=== PATIENT | female | born 1985 ===

== ENCOUNTER 2020-07-14 09:11 | Outpatient (REF) | payer OTHER, SELFPAY ==
[2020-07-14 09:49] LABS: MANUAL DIFF FLAG NO
[2020-07-14 09:59] LABS: Glucose Urine UA NEG (NEG); Leukocyte Esterase Urine NEG (NEG); Nitrite Urine NEG (NEG); PH 5.5 (5.0-8.0); Specific Gravity - Urine 1.025 (1.005-1.025); Urine Blood TRACE (NEG); Urine Ketones NEG (NEG); Urine Protein NEG (NEG-TRACE)
[2020-07-14 10:01] LABS: Basophils Percent Auto 0.3 % (0-2); Eosinophils Absolute Auto 0.1 X10*3/uL (0.0-0.4); Eosinophils Percent Auto 1.2 % (0-4); Hematocrit 35.4 % (37-47); Hemoglobin 11.9 g/dl (12.0-16.0); Imm Gran Abs Auto 0.02 X10*3/uL (0.00-0.03); Imm Gran Pct Auto 0.3 % (0.0-0.4); Lymphocytes Absolute Auto 1.7 X10*3/uL (1.2-4.9); Lymphocytes Percent Auto 28.9 % (20-40); Mean Corpuscular HGB Conc 33.6 g/dl (31.0-35.0); Mean Corpuscular Hemoglobin 28.5 pg (27.0-33.0); Mean Corpuscular Volume 84.7 fL (80-98); Mean Platelet Volume 11.1 fL (9.4-12.3); Monocytes Absolute Auto 0.4 X10*3/uL (0.1-1.2); Monocytes Percent Auto 6.8 % (2-11); Neutrophils Absolute Auto 3.7 X10*3/uL (2.0-8.3); Neutrophils Percent Auto 62.5 % (45-73); Platelet Count 227 X10*3/uL (160-400); Red Blood Count 4.18 X10*6/uL (4.20-5.50)
[2020-07-14 10:08] LABS: Appearance Urine CLEAR; Color Urine YELLOW
[2020-07-14 10:21] LABS: RBC Urine 0-2 /HPF (0); Squamous Epithelial Cell Urine 2+ /LPF; WBC Urine 0-2 /HPF (0-4)
[2020-07-14 10:32] LABS: Alanine Aminotransferase 18 U/L (0-31); Albumin Level 4.1 g/dL (3.5-5.0); Alkaline Phosphatase 74 U/L (39-117); Anion Gap 11 (12-20); Aspartate Amino Transferase 15 U/L (5-31); Bilirubin Total 0.3 mg/dL (0.0-1.0); Blood Urea Nitrogen 12 mg/dL (9-16); Calcium 8.5 mg/dL (8.4-10.2); Carbon Dioxide 25 mmol/L (22-29); Chloride 108 mmol/L (96-108); Cholesterol 164 mg/dL; Estimated Glomerular Filt Rate > 60; Glucose Fasting 102 mg/dL (60-99); HDL Cholesterol 34 mg/dL; LDL Cholesterol Calculated 112 mg/dl; Potassium 4.1 mmol/L (3.3-5.1); Sodium 140 mmol/L (135-145); Total Protein 7.1 g/dL (6.5-8.0); Triglycerides 92 mg/dL
[2020-07-14 10:39] LABS: TSH reflex Free T4 0.71 uIU/mL (0.32-4.0)
[2020-07-14 10:43] LABS: Erythrocyte Sedimentation Rate 21 MM/HR (0-20)
== END 2020-07-14 09:12 | disposition home or self-care (01) ==
LOC: HO.LAB 09:11
PROVIDERS: PCP Internal Medicine; Visit Provider Internal Medicine
DX: Z00.00 Encounter for general adult medical examination without abnormal findings (principal); G44.219 Episodic tension-type headache, not intractable; E66.9 Obesity, unspecified
CPT/HCPCS: 36415; 80053; 80061; 81001; 81003; 84443; 85025; 85652

== ENCOUNTER 2021-06-22 08:50 | Outpatient (REF) | payer OTHER, SELFPAY ==
[2021-06-22 09:17] LABS: MANUAL DIFF FLAG NO
[2021-06-22 09:29] LABS: Basophils Percent Auto 0.3 % (0-2); Eosinophils Absolute Auto 0.1 X10*3/uL (0.0-0.4); Eosinophils Percent Auto 1.2 % (0-4); Hematocrit 36.9 % (37.0-47.0); Hemoglobin 12.2 g/dl (12.0-16.0); Imm Gran Abs Auto 0.02 X10*3/uL (0.00-0.03); Imm Gran Pct Auto 0.3 % (0.0-0.4); Lymphocytes Absolute Auto 1.8 X10*3/uL (1.2-4.9); Lymphocytes Percent Auto 27.5 % (20-40); Mean Corpuscular HGB Conc 33.1 g/dl (31.0-35.0); Mean Corpuscular Hemoglobin 28.2 pg (27.0-33.0); Mean Corpuscular Volume 85.2 fL (80.0-98.0); Mean Platelet Volume 10.4 fL (9.4-12.3); Monocytes Absolute Auto 0.4 X10*3/uL (0.1-1.2); Monocytes Percent Auto 6.5 % (2-11); Neutrophils Absolute Auto 4.3 x10*3/uL (2.0-8.3); Neutrophils Percent Auto 64.2 % (45-73); Platelet Count 250 X10*3/uL (160-400); Red Blood Count 4.33 X10*6/uL (4.20-5.50); Red Cell Distribution Width 12.7 % (11.0-16.0); White Blood Count 6.7 X10*3/uL (4.8-10.8)
[2021-06-22 09:49] LABS: Appearance Urine CLEAR; Color Urine YELLOW; Glucose Urine UA NEG (NEG); Leukocyte Esterase Urine NEG (NEG); Nitrite Urine NEG (NEG); PH 6.5 (5.0-8.0); Specific Gravity - Urine 1.025 (1.005-1.025); UACC Culture Trigger NO; Urine Blood TRACE (NEG); Urine Ketones 5 MG/DL (NEG); Urine Protein TRACE MG/DL (NEG-TRACE)
[2021-06-22 09:54] LABS: Alanine Aminotransferase 15 U/L (0-31); Albumin Level 4.2 g/dL (3.5-5.0); Alkaline Phosphatase 76 U/L (39-117); Anion Gap 10 (12-20); Aspartate Amino Transferase 13 U/L (5-31); Bilirubin Total 0.4 mg/dL (0.0-1.0); Blood Urea Nitrogen 9 mg/dL (9-16); Calcium 9.5 mg/dL (8.4-10.2); Carbon Dioxide 28 mmol/L (22-29); Chloride 107 mmol/L (96-108); Cholesterol 154 mg/dL; Estimated Glomerular Filt Rate > 60; Glucose Fasting 107 mg/dL (60-99); HDL Cholesterol 33 mg/dL; LDL Cholesterol Calculated 103 mg/dl; Potassium 4.3 mmol/L (3.3-5.1); Sodium 141 mmol/L (135-145); Total Protein 7.4 g/dL (6.5-8.0); Triglycerides 90 mg/dL
[2021-06-22 10:00] LABS: Bacteria Urine TRACE /LPF; Mucus Urine 4+ /LPF; Squamous Epithelial Cell Urine 4+ /LPF; WBC Urine 0-2 /HPF (0-4)
[2021-06-22 10:10] LABS: Erythrocyte Sedimentation Rate 23 MM/HR (0-20)
[2021-06-22 10:17] LABS: TSH reflex Free T4 0.76 uIU/mL (0.32-4.0); Vitamin D 25-OH Total 21.7 ng/mL (>30)
== END 2021-06-22 08:51 | disposition home or self-care (01) ==
LOC: HO.LAB 08:50
PROVIDERS: PCP Internal Medicine; Visit Provider Internal Medicine
DX: Z00.00 Encounter for general adult medical examination without abnormal findings (principal); E04.9 Nontoxic goiter, unspecified; E55.9 Vitamin D deficiency, unspecified; G43.909 Migraine, unspecified, not intractable, without status migrainosus
CPT/HCPCS: 36415; 80053; 80061; 81001; 82306; 84443; 85025; 85652

== ENCOUNTER 2021-07-05 10:40 | Outpatient (REF) | payer OTHER, SELFPAY ==
--- NOTE | ~2021-07-05 | US_ITS ---
EXAMINATION: US THYROID CLINICAL INFORMATION: Nontoxic goiter, unspecified. COMPARISON: Ultrasound abdomen complete 09/16/2016. CT abdomen and pelvis 01/22/2013. TECHNIQUE: Linear transducer sexton-scale and color Doppler examination with attention to the region of the thyroid. FINDINGS: SIZE: Measurements of the thyroid lobes and nodules are given in sagittal, anteroposterior and transverse dimensions respectively. Right Thyroid Lobe: 4.7 x 1.5 x 1.7 cm, volume 6.3 mL. Parenchyma: The gland echotexture is homogeneous. Thyroid vascularity is normal. Left Thyroid Lobe: 4.4 x 1.1 x 1.7 cm, volume 4.3 mL. Parenchyma: The gland echotexture is homogeneous. Thyroid vascularity is normal. Isthmus: 0.3 cm in maximum AP dimension. No focal thyroid nodule is seen. NODES: No lymphadenopathy is seen in the tissue surrounding the thyroid gland. US/US thyroid IMPRESSION: Unremarkable thyroid ultrasound. No focal nodule seen. ACR TI-RADS RECOMMENDATION REFERENCE: Ultrasound-guided fine-needle aspiration, followup ultrasound, no further follow up. * TR1 (0 point) and TR 2 (2 points): No FNA or follow up * TR3 (3 points): FNA if more than or equal to 2.5 cm in maximum dimension, followup ultrasound in 1, 3 and 5 years if 1.5 to 2.4 cm in maximum dimension. * TR4 (4-6 points): FNA if more than or equal to 1.5 cm in maximum dimension, followup ultrasound in 1, 2, 3 and 5 years if 1 to 1.4 cm in maximum dimension. * TR5 (more than or equal to 7 points): FNA if more than or equal to 1 cm in maximum dimension, followup ultrasound every year for 5 years if 0.5 to 0.9 cm in maximum dimension. * TR3, TR4 or TR5 nodules that are below the size threshold for follow up receive no follow up.
== END 2021-07-05 10:41 | disposition home or self-care (01) ==
LOC: HO.HMGCX 10:40
PROVIDERS: PCP Internal Medicine; Visit Provider Internal Medicine
DX: E04.9 Nontoxic goiter, unspecified (principal)
CPT/HCPCS: 76536

== ENCOUNTER 2021-12-07 15:35 | Outpatient (REF) | payer OTHER, SELFPAY ==
[2021-12-07 18:10] LABS: Appearance Urine CLEAR; Color Urine YELLOW; Glucose Urine UA NEG (NEG); Leukocyte Esterase Urine NEG (NEG); Nitrite Urine NEG (NEG); Specific Gravity - Urine 1.015 (1.005-1.025); UACC Culture Trigger NO; Urine Blood 1+ (NEG); Urine Ketones NEG (NEG); Urine Protein NEG (NEG-TRACE)
[2021-12-07 18:18] LABS: WBC Urine 0-2 /HPF (0-4)
[2021-12-07 18:19] LABS: Squamous Epithelial Cell Urine 1+ /LPF
[2021-12-08 08:09] LABS: HBc Num1 0.09 S/CO (0.00-0.79); HIV AB/AG Nonreactive (Nonreactive); HIV Num 1 0.05 S/CO (0.00-0.99); Hepatitis B Core Antibody Nonreactive (Nonreactive); ~HepC Num1 0.07 S/CO (0.00-0.79); ~Hepatitis C Antibody Nonreactive (Nonreactive)
[2021-12-08 08:34] LABS: CT PCR NOT DETECTED (Not Detect.); NG PCR NOT DETECTED (Not Detect.)
[2021-12-08 09:26] LABS: Syphilis Screen Nonreactive (Nonreactive)
[2021-12-13 14:37] LABS: HPV mRNA E6/E7 rflx Not Detected (Not Detected)
== END 2021-12-07 15:36 | disposition home or self-care (01) ==
LOC: HO.LAB 15:35
PROVIDERS: PCP Internal Medicine; Visit Provider Advanced Practice Midwife
DX: Z01.419 Encounter for gynecological examination (general) (routine) without abnormal findings (principal); Z20.2 Contact with and (suspected) exposure to infections with a predominantly sexual mode of transmission
CPT/HCPCS: 36415; 81001; 86704; 86780; 86803; 87389; 87491; 87591; 87624; 88142

== ENCOUNTER 2022-06-14 18:23 | Outpatient (REF) | payer OTHER, SELFPAY ==
[2022-06-15 12:20] LABS: BV Int Neg Control Negative (Negative); BV Int Pos Control Positive (Positive)
== END 2022-06-14 18:24 | disposition home or self-care (01) ==
LOC: HO.LNP 18:23
PROVIDERS: Visit Provider Physician Assistant Medical
DX: N76.0 Acute vaginitis (principal)
CPT/HCPCS: 87480; 87510; 87660

== ENCOUNTER 2022-08-07 09:52 | Outpatient (REF) | payer OTHER, SELFPAY ==
--- NOTE | ~2022-08-07 | XR_ITS ---
EXAMINATION: XR CHEST CLINICAL INFORMATION: R06.00 - Dyspnea, unspecified COMPARISON: Chest radiographs 05/05/2012 TECHNIQUE: 2 views of the chest were obtained. FINDINGS: The lungs are clear and there is no airspace consolidation or groundglass opacity or effusion. Punctate nodular density possibly vascular marking right lateral base is stable from 2012 consistent with benign finding. The costophrenic sulci are clear. The heart is normal in size. The hilar and mediastinal contours and bony structures are unremarkable. XR/XR chest 2V IMPRESSION: Lungs clear. No acute intrathoracic disease.
[2022-08-07 16:47] LABS: CT PCR NOT DETECTED (Not Detect.); NG PCR NOT DETECTED (Not Detect.)
[2022-08-08 12:18] LABS: BV Int Neg Control Negative (Negative); BV Int Pos Control Positive (Positive)
== END 2022-08-07 09:53 | disposition home or self-care (01) ==
LOC: HO.LAB 09:52
PROVIDERS: Absent Provider Internal Medicine; PCP Internal Medicine; Visit Provider Advanced Practice Midwife
DX: R06.00 Dyspnea, unspecified (principal); B96.89 Other specified bacterial agents as the cause of diseases classified elsewhere; N76.0 Acute vaginitis; Z20.2 Contact with and (suspected) exposure to infections with a predominantly sexual mode of transmission; Z86.16 Personal history of COVID-19
CPT/HCPCS: 0353U; 71046; 87480; 87510; 87660

== ENCOUNTER 2022-08-07 10:15 | Outpatient (REF) | payer OTHER, SELFPAY | END 2022-08-07 10:16 | disposition home or self-care (01) | LOC: HO.LNP 10:15 | PROVIDERS: Visit Provider Advanced Practice Midwife | DX: Z13.89 Encounter for screening for other disorder (principal) ==

== ENCOUNTER 2022-09-13 13:40 | Outpatient (REF) | payer OTHER, SELFPAY ==
--- NOTE | ~2022-09-13 | MM_ITS ---
EXAMINATION: MM DIAGNOSTIC DIGITAL BREAST TOMOSYNTHESIS, BILATERAL US DIAGNOSTIC ULTRASOUND BREAST, BILATERAL CLINICAL INFORMATION: 37-year-old with chronic bilateral fullness axilla noted by patient over 1 year. No erythema. Prior ultrasound guided right biopsy axilla 07/28/2015 (unremarkable breast tissue; no clip placed). The lifetime risk of breast cancer based on the Tyrer-Cuzick Model is 12%. COMPARISON: Ultrasound-guided right axillary biopsy 07/28/2015, targeted right breast/axillary ultrasound 07/19/2015, 10/26/2014. TECHNIQUE: Digital breast tomosynthesis is performed in both the craniocaudal and mediolateral oblique views along with computer-aided detection (CAD). Synthesized 2D images are generated from the tomosynthesis. Additional bilateral spot MLO views of the axilla are obtained. Ultrasound bilateral breast/axilla is performed using grayscale imaging and color Doppler without and with harmonics. Patient is able to point to the areas of concern at time of imaging. FINDINGS: The breasts are heterogeneously dense, which may obscure small masses (ACR BI-RADS breast composition Category c). The breasts show no significant mass or architectural abnormality or abnormal calcifications. The skin contours are smooth. No skin thickening or coarsening of the Alf's ligaments. No axillary adenopathy demonstrated. There are accentuated reticular markings bilateral axilla near areas of clinical palpable concern. Ultrasound ultrasound bilateral axilla demonstrates no cystic or solid mass or architectural abnormality. No lymphadenopathy. No skin thickening or edema tracking in soft tissue planes. Results are discussed with the patient at time of visit. The previous right axillary biopsy 2015 (no clip placed) revealed benign breast tissue. The bilateral axillary reticular markings likely represent accessory breast tissue. Suggest follow-up bilateral mammography in 6 months. MM/MM tomosynthesis diagnostic BI IMPRESSION: -No mammographic or ultrasound evidence of malignancy. -Probable accessory breast tissue bilateral axilla. ASSESSMENT: BI-RADS 3: Probably Benign RECOMMENDATION: Diagnostic bilateral mammography in 6 months. This patient's information was entered into a reminder system with a target due date for their next mammogram.
== END 2022-09-13 13:41 | disposition home or self-care (01) ==
LOC: HO.MAMMO 13:40
PROVIDERS: PCP Internal Medicine; Visit Provider Internal Medicine
DX: N63.32 Unspecified lump in axillary tail of the left breast (principal); M79.89 Other specified soft tissue disorders
CPT/HCPCS: 76642; 77062; 77066

== ENCOUNTER 2022-12-28 15:40 | Outpatient (AMB) | payer OTHER, SELFPAY ==
[2022-12-28 15:41] VITALS: BP 102/60; PULSE 73; O2SAT 97
--- NOTE | 2022-12-28 15:41 | A.OFFPC_ITS ---
Vital Signs 12/28/22 15:41 Height 5 ft 3 in Weight 169 lb 4 oz BMI 30.0 BP 102/60 Blood Pressure Location Lt brachial Position Sitting Pulse 73 Pulse Source Pulse Oximeter Pulse Oximetry (%) 97 Oxygen Delivery Method Room Air Intake Visit Reasons: Annual Exam Application Dba Required: No Accompanied by: Self / Same As Patient Allergies seafood Allergy (Unknown, Verified 12/28/22 15:56) Unknown Medication List - Last Reconciled 12/28/22 by Jersey Cardoso MD albuterol sulfate 90 mcg/actuation (ProAir HFA) 2 puffs inhalation Q6H PRN 30 days ebxmragxjg-utxuejrvpsuvu-imje 50-325-40 mg 1 cap PO Q6-8H PRN 30 days cholecalciferol (vitamin D3) 25 mcg PO DAILY naproxen 500 mg PO BID PRN sumatriptan succinate 50 mg PO Q2H PRN Tobacco use date assessed: 12/28/22 Dental Screening Dental Screen Date: 12/28/22 Did you have a dental visit in the last 12 months?: Yes Did you have a dental problem in the last 6 months where you did not have access to dental care?: No Was dental information given to patient?: Patient has dentist HPI Annual Exam HPI Details Patient comes in today for her annual physical examination States that she feels okay and that her migraine headaches have been much better controlled lately She denies any dizziness Denies any chest pains, no SOB although she relates suddenly experiencing some chest tightness a couple of days ago that started when she was eating States that she did not choke on any foods or drinks at the time Recalls that the sensation of chest tightness went up into her left shoulder and down the length of her left arm and hand and that all of these symptoms lasted for about 30 minutes before they subsided and have not recurred since Relates (+) Hx of heart disease (mother) and she is concerned about her own risks and that the symptoms may be cardiac in etiology - would like to get some cardiac testing done JAZMIN No nausea/vomiting, no abdominal pain No change in bowel habits noted Denies any acute urinary symptoms She is scheduled for 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 1. Little interest or pleasure in doing things: not at all 2. Feeling down, depressed, or hopeless: not at all 3. Trouble falling or staying asleep, or sleeping too much: not at all 4. Feeling tired or having little energy: not at all 5. Poor appetite or overeating: not at all 6. Feeling bad about yourself - or that you are a failure or have let yourself or your family down: not at all 7. Trouble concentrating on things, such as reading the newspaper or watching television: not at all 8. Moving or speaking so slowly that other people could have noticed. Or the opposite - being so fidgety or restless that you have been moving around a lot more than usual: not at all 9. Thoughts that you would be better off or of hurting yourself in some way: not at all Total score: 0 Depression Screening Interpretation: Negative 31520 - PHQ-9 Billing: Yes Source: Developed by Drs. Viktor Ramirez, Lisa Zafar, Henok Doherty and colleagues, with an educational yolette from [employer]. Thrive Questionnaire Date Thrive assessed: 12/28/22 I am a: Patient What is your living situation today?: I have a steady place to live Within the past 12 months, did the food you bought not last and you didn't have the money to get more?: Never true Within the past 12 months, did you worry whether your food would run out before you got money to buy more?: Never true Do you have trouble paying for medicines?: No Do you have trouble getting transportation to medical appointments?: No Do you have trouble paying your heating and electricity bill?: No Do you have trouble taking care of your child, family member or friend?: No Do you have trouble with day-to-day activities such as bathing, preparing meals, shopping, managing finances, etc.?: No Are you currently unemployed and looking for a job?: No Are you interested in more education?: No Please select the resources that you would like help with: None Currently or been in a relationship where the following occur: no concerns reported AUDIT C Alcohol Use Questionnaire (AUDIT-C) 1. How often do you have a drink containing alcohol?: Never 3. How often do you have six or more drinks on one occasion?: Never Total Score: 0 Score Reviewed/Action Taken: Yes LISANDRO-7 AMB Questionnaire LISANDRO-7 Date LISANDRO - 7 assessed: 12/28/22 Feeling nervous, anxious, or on edge: 0 = Not at all Not being able to stop or control worryin = Not at all Worrying too much about different things: 0 = Not at all Trouble relaxin = Not at all Being so restless that it is hard to sit still: 0 = Not at all Becoming easily annoyed or irritable: 0 = Not at all Feeling afraid as if something awful might happen: 0 = Not at all Total LISANDRO-7 score (0-4 normal; 5-9 mild; 10-14 moderate; 15-21 severe): 0 Source: Developed by Drs. Viktor Ramirez, Lisa Zafar, Henok Doherty and colleagues, with an educational yolette from [employer]. LISANDRO-7 Assessment Billing LISANDRO-7 Assessment Tool: LISANDRO-7 Assessment 76142 Review of Systems Const Denies chills, Denies fatigue, Denies fever(s), Denies headache(s) and Denies malaise Eyes Denies blurry vision, Denies change in vision, Denies irritation and Denies itchy eyes ENT Denies dysphagia, Denies dizziness, Denies otalgia, Denies headache(s), Denies nasal congestion, Denies neck pain, Denies odynophagia, Denies sinus pain and Denies sore throat Card Denies chest pain ((+) chest tightness/discomfort radiating into left arm 2 days ago-see HPI), Denies rapid heart rate, Denies irregular heart rhythm, Denies palpitations and Denies dyspnea Resp Denies chest congestion, Denies cough, Denies dyspnea and Denies wheezing GI Denies abdominal pain, Denies constipation, Denies dysphagia, Denies heartburn, Denies diarrhea, Denies nausea, Denies odynophagia and Denies vomiting Denies hematuria, Denies urinary frequency, Denies dysuria, Denies urinary incontinence and Denies urinary urgency Musc Denies back pain, Denies arthralgias, Denies joint swelling, Denies muscle weakness and Denies neck pain Skin/Breast Denies breast pain, Denies breast mass, Denies change in pigmentation, Denies lesions, Denies rash and Denies unusual bruising Neuro Denies dizziness, Denies headache(s) and Denies paresthesias Psych Denies anxiety and Denies depression Endo Denies fatigue and Denies palpitations David/Lymph Denies easy bruising Aller/Immun Denies itchy eyes and Denies wheezing Physical exam (Primary Care) Vital Signs: Last Vital Signs Pulse 73 12/28/22 15:41 BP 102/60 12/28/22 15:41 Pulse Ox 97 12/28/22 15:41 Oxygen Delivery Method Room Air 12/28/22 15:41 BMI result Body Mass Index 30.0 Tobacco/Smoking Status: Tobacco use Status Tobacco use date assessed 12/28/22 12/28/22 15:46 Patient Tobacco Use Status Never used Tobacco 12/28/22 15:46 PHQ-9: PHQ-9 Score PHQ-9: Total score 0 12/28/22 15:46 Depression Screening Interpretation: Negative Thrive Assessment: Date of Thrive Assessment Date Thrive assessed 12/28/22 12/28/22 15:46 Currently or been in a relationship where the following occur: no concerns reported Const General: no acute distress, alert and awake Orientation/consciousness: patient oriented x3 HENMT Head: Yes normocephalic and Yes atraumatic Ears: external ears normal, TM's normal bilaterally and EAC's normal General nose exam: No nasal discharge present Face and sinus: Yes normal facial exam and Yes sinuses nontender Teeth and gingiva: dentition normal Throat: Yes posterior oropharynx normal and Yes tonsils normal (no TP congestion) Eyes Eyelids: Yes eyelids normal Conjunctivae: conjunctivae normal Pupils: Equal, round and reactive pupils present EOM: EOMs intact bilaterally Neck Neck: Yes no lymphadenopathy and Yes supple Thyroid: Thyroid normal Resp Auscultation: clear to auscultation bilaterally, no rales and no wheezes Cardio Rate: regular rate Rhythm: regular rhythm Heart sounds: no murmurs GI Palpation (GI): Soft to palpation, nontender and No hepatosplenomegaly present Auscultation: normal bowel sounds General: Yes no CVA tenderness Back/Spine/Pelvis Back: no CVA tenderness Thoracic/Lumbar Spine: thoracic and lumbar spine normal to inspection Skin Lesions: no lesions Rashes: no rashes Neuro General: patient oriented x3, moves all extremities, no focal motor deficits and CN's II-XI intact bilaterally Cranial nerves: Yes Equal, round and reactive pupils present Cognition (Neuro): normal cognition Gait exam (Neuro): Normal gait present Extrem General: Yes no clubbing, cyanosis or edema Assessment and Plan Assessment & Plan (1) Annual physical exam: Code(s): Z00.00 - Encounter for general adult medical examination without abnormal findings Plan: Check labs She is scheduled for her yearly pap smear / 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 and annual mammogram in March 2023 (2) Migraine: Code(s): G43.909 - Migraine, unspecified, not intractable, without status migrainosus Qualifiers: Migraine type: unspecified Status migrainosus presence: without status migrainosus Intractability: not intractable Qualified Code(s): G43.909 - Migraine, unspecified, not intractable, without status migrainosus Plan: Stable - patient states that she only has about 1 to 2 episodes of headaches a month and these have been mostly well-controlled Continue Fioricet 50-325-40 mg PRN and/or Sumatriptan 50 mg PRN She is instructed again to call if her migraine headaches progress or get worse (3) Chest discomfort: Code(s): R07.89 - Other chest pain Plan: Symptoms occurred a couple of days ago with no recurrence Relates (+) family Hx of heart disease and is concerned about her own risks Will send patient for some labs and EKG JAZMIN for further evaluation Per request, will also refer her for cardiac stress testing for further evaluation (4) Vitamin D deficiency: Code(s): E55.9 - Vitamin D deficiency, unspecified Plan: Continue Vitamin D3 1000 units QD Will recheck her Vitamin D level for follow up (5) Obesity (BMI 30-39.9): Code(s): E66.9 - Obesity, unspecified Plan: Reinforced diet/exercise as tolerated/lose weight Plan Follow up in 6 months Orders: Orders Comprehensive [place]. Panel Fast Today G43.109 - Migraine with aura, not intractable, without status migrainosus, Z00.00 - Encounter for general adult medical examination without abnormal findings Lipid Panel Today E78.00 - Pure hypercholesterolemia, unspecified, G43.109 - Migraine with aura, not intractable, without status migrainosus, Z00.00 - Encounter for general adult medical examination without abnormal findings TSH reflex Free T4 Today E78.00 - Pure hypercholesterolemia, unspecified, G43.109 - Migraine with aura, not intractable, without status migrainosus, Z00.00 - Encounter for general adult medical examination without abnormal findings Vitamin D 25-OH Total Today E55.9 - Vitamin D deficiency, unspecified, Z00.00 - Encounter for general adult medical examination without abnormal findings Complete Blood Count Auto Diff Today G43.109 - Migraine with aura, not intractable, without status migrainosus, Z00.00 - Encounter for general adult medical examination without abnormal findings UA CC w/rflx Micro + Cult Today G43.109 - Migraine with aura, not intractable, without status migrainosus, R30.0 - Dysuria, Z00.00 - Encounter for general adult medical examination without abnormal findings ECG 12 lead EKG Today R07.89 - Other chest pain CA cardiopulmonary stress test Today R07.89 - Other chest pain Troponin-I High Sensitivity Today R07.89 - Other chest pain Coding Level of Care Code Est Pt Prev Care 18-39y([id number]) Diagnoses Annual physical exam Z00.00 Migraine G43.909 Migraine type: unspecified Status migrainosus presence: without status migrainosus Intractability: not intractable Chest discomfort R07.89 Vitamin D deficiency E55.9 Obesity (BMI 30-39.9) E66.9 Additional Codes LISANDRO-7 Assessment Billing - LISANDRO-7 Assessment Tool: LISANDRO-7 Assessment [id number] ([id number])
== END 2022-12-28 16:22 | disposition home or self-care (01) ==
PROVIDERS: PCP Internal Medicine; Visit Provider Internal Medicine
DX: Z00.00 Encounter for general adult medical examination without abnormal findings (principal); G43.909 Migraine, unspecified, not intractable, without status migrainosus; E66.9 Obesity, unspecified; Z68.30 Body mass index [BMI] 30.0-30.9, adult; E55.9 Vitamin D deficiency, unspecified; R07.89 Other chest pain
CPT/HCPCS: 99395

== ENCOUNTER 2023-01-01 09:02 | Outpatient (REF) | payer OTHER, SELFPAY ==
--- NOTE | 2023-01-01 09:07 | ECG_ITS ---
Test Reason : r07.89 cp Blood Pressure : / mmHG Vent. Rate : 059 BPM Atrial Rate : 059 BPM P-R Int : 174 ms QRS Dur : 082 ms QT Int : 408 ms P-R-T Axes : 044 042 049 degrees QTc Int : 403 ms Sinus bradycardia with sinus arrhythmia Otherwise normal ECG No previous ECGs available Referred By: Jersey Cardoso Electronically Signed By:MERRITT ALBERT
[2023-01-01 09:19] LABS: MANUAL DIFF FLAG NO
[2023-01-01 10:19] LABS: Basophils Percent Auto 0.6 % (0-2); Eosinophils Absolute Auto 0.1 X10*3/uL (0.0-0.4); Eosinophils Percent Auto 1.7 % (0-4); Hemoglobin 12.6 g/dl (12.0-16.0); Imm Gran Abs Auto 0.02 X10*3/uL (0.00-0.03); Imm Gran Pct Auto 0.3 % (0.0-0.4); Lymphocytes Absolute Auto 1.9 X10*3/uL (1.2-4.9); Lymphocytes Percent Auto 26.3 % (20-40); Mean Corpuscular HGB Conc 33.2 g/dl (31.0-35.0); Mean Corpuscular Hemoglobin 27.8 pg (27.0-33.0); Mean Corpuscular Volume 83.9 fL (80.0-98.0); Mean Platelet Volume 11.1 fL (9.4-12.3); Monocytes Absolute Auto 0.4 X10*3/uL (0.1-1.2); Monocytes Percent Auto 5.9 % (2-11); Neutrophils Absolute Auto 4.7 x10*3/uL (2.0-8.3); Neutrophils Percent Auto 65.2 % (45-73); Platelet Count 249 X10*3/uL (160-400); Red Blood Count 4.53 X10*6/uL (4.20-5.50); Red Cell Distribution Width 12.8 % (11.0-16.0); White Blood Count 7.3 X10*3/uL (4.8-10.8)
[2023-01-01 10:27] LABS: Appearance Urine Hazy; Color Urine Yellow; Glucose Urine UA Negative (Negative); Leukocyte Esterase Urine Negative (Negative); Nitrite Urine Negative (Negative); Specific Gravity - Urine >= 1.030 (1.005-1.025); UMIC TRIGGER UACC YES; Urine Blood Small (1+) (Negative); Urine Ketones Negative (Negative); Urine Protein Trace mg/dL (Neg-Trace)
[2023-01-01 10:37] LABS: Bacteria Urine 1+ (None Seen); Calcium Oxalate Crystals Urine Present; Hyaline Casts Urine 0-2 /LPF (0-2); RBC Urine 0-2 /HPF (0-2); WBC Urine 0-5 /HPF (0-5)
[2023-01-01 11:05] LABS: Alanine Aminotransferase 13 U/L (0-31); Albumin Level 4.2 g/dL (3.5-5.0); Alkaline Phosphatase 87 U/L (39-117); Anion Gap 9 (12-20); Aspartate Amino Transferase 14 U/L (5-31); Bilirubin Total 0.3 mg/dL (0.0-1.0); Blood Urea Nitrogen 13 mg/dL (9-16); Calcium 9.5 mg/dL (8.4-10.2); Carbon Dioxide 27 mmol/L (22-29); Chloride 107 mmol/L (96-108); Cholesterol 156 mg/dL; Estimated Glomerular Filt Rate > 60; Glucose Fasting 101 mg/dL (60-99); HDL Cholesterol 34 mg/dL; LDL Cholesterol Calculated 103 mg/dl; Potassium 4.1 mmol/L (3.3-5.1); Sodium 139 mmol/L (135-145); Total Protein 7.8 g/dL (6.5-8.0); Triglycerides 97 mg/dL
[2023-01-01 11:26] LABS: TSH reflex Free T4 0.65 uIU/mL (0.32-4.0); Vitamin D 25-OH Total 32.2 ng/mL (>30)
== END 2023-01-01 09:03 | disposition home or self-care (01) ==
LOC: HO.LAB 09:02
PROVIDERS: PCP Internal Medicine; Visit Provider Internal Medicine
DX: Z00.00 Encounter for general adult medical examination without abnormal findings (principal); R07.89 Other chest pain; G43.109 Migraine with aura, not intractable, without status migrainosus; E55.9 Vitamin D deficiency, unspecified; E78.00 Pure hypercholesterolemia, unspecified
CPT/HCPCS: 36415; 80053; 80061; 81001; 82306; 84443; 84484; 85025; 93005

== ENCOUNTER → 2023-01-07 13:54 | Outpatient (REF) | payer OTHER, SELFPAY ==
--- NOTE | 2023-01-07 13:57 | CA_ITS ---
Acquisition Time: 2023-01-07 14:04:46 Total Exercise Time: 00:07:31 Test Indications: CHEST PAIN Medications: ALBUTEROL MAPROXEN SUMATRIPTAN Protocol: MANUEL Max HR: 162 BPM 88% of Pred: 183 BPM Max BP: 158/068 mmHG Max Work Load: 9.3 METS Exercise stress test exercise 7 min 31 sec of Manuel protocol achieving 88% MPHR, with mild SOB, no chest discomfort, without arrhythmias, with normotensive response to exercise, without EKG changes. Test reviewed with Dr. Salvador. Referred By: Jersey Cardoso Overread By: Tara Sam
== END ==
LOC: HO.CARD 13:54
PROVIDERS: PCP Internal Medicine; Visit Provider Internal Medicine
DX: R07.89 Other chest pain (principal)
CPT/HCPCS: 93017

== ENCOUNTER → 2023-01-07 13:57 | Outpatient (BNV) | payer OTHER, SELFPAY | PROVIDERS: PCP Internal Medicine; Visit Provider Nurse Practitioner | DX: R06.02 Shortness of breath (principal); R07.9 Chest pain, unspecified | CPT/HCPCS: 93016; 93018 ==

== ENCOUNTER 2023-03-27 09:57 | Outpatient (AMB) | payer OTHER, SELFPAY ==
--- NOTE | 2023-03-27 10:00 | A.OFFVIS_ITS ---
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 Doing well overall with some concerns. She tries to eat healthy and stays active with exercise. Regular monthly menses. She complains of feelings of hot flashes, which she says occur randomly. She is concerned this is pre-menopause. She denies vaginal itching and irritation. She says she has been using probiotics 2x weekly after her previous BV from 08/09. She has Boric acid product at home she can use. STI screening offered; she accepts. Denies family history of breast, ovarian or colon cancer. Last pap smear 12/08/21, was negative. Last mammogram 09/13/22, was abnormal, repeat mammogram scheduled for 04/17/23. She reports losing ~10lbs since her last appointment. [facility] Medical History Lump of axillary tail of left breast Vitamin D deficiency Migraine with aura Obesity (BMI 30-39.9) Surgical History Hx of tubal ligation History of section Family History Father No problems noted. 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 Sexual orientation: Straight/Heterosexual Gender identity: Female Cognitive needs: No Hearing needs: No Vision needs: No Female Reproductive History Menstrual Date of last menstrual period: 03/16/23 control method: permanent sterilization Permanent Sterilization: BTL Total pregnancies: 2 Full term: 2 Number of Living Children: 2 Date of last pap smear: 12/07/21 (neg pap and hpv) Review of Systems Const All systems reviewed & are unremarkable except as noted in HPI and below Reports as per HPI Eyes Reports no additional complaints ENT Reports no additional complaints Card Reports no additional complaints Resp Reports no additional complaints GI Reports as per HPI and Reports no additional complaints Reports as per HPI Musc Reports no additional complaints Skin/Breast Reports as per HPI Neuro Reports no additional complaints Psych Reports no additional complaints Endo Reports no additional complaints David/Lymph Reports no additional complaints Aller/Immun Reports no additional complaints Physical Exam Vital Signs: Last Vital Signs BP 114/70 03/27/23 10:02 BMI result Body Mass Index 29.2 Const General: cooperative, healthy appearing, no acute distress, well developed and alert Orientation/consciousness: patient oriented x3 HEENT Head: Yes normal to inspection Eyes General: appearance normal, both eyes and all related structures Neck Neck: Yes normal visual inspection Thyroid: Thyroid normal Chest Other: Area of thickness in the left breast, at ~12:00, above the nipple Chest palpation & inspection: normal inspection of the chest and other (no puckering, dimpling, peau de orange, retraction, discharge, masses) Breast/axilla inspection: normal inspection of the breasts Breast/axilla palpation: normal palpation of the breasts Resp Effort & Inspection: normal respiratory effort GI Inspection: Yes normal to inspection Palpation (GI): Soft to palpation Rectal Exam - Female: deferred General: Yes bladder normal to palpation External Female Exam: normal external appearance and normal appearance of the urethra Speculum Exam - Vagina: normal appearance of the vagina, normal palpation and normal vaginal discharge Speculum Exam - Cervix: normal appearance of the cervix and normal palpation Bimanual exam- vagina & uterus: normal bimanual exam, normal palpation, uterine size normal, bladder normal to palpation, normal palpation and non-tender Bimanual Exam- Adnexa, other: no masses Skin General skin exam: no rashes or lesions noted Rashes: no rashes Neuro General: patient oriented x3 Cognition (Neuro): normal cognition Extrem General: Yes normal to inspection Psych Attitude: cooperative Thought process: Normal thought process present Results Reviewed Results Reviewed: FINDINGS: The breasts are heterogeneously dense, which may obscure small masses (ACR BI-RADS breast composition Category c). The breasts show no significant mass or architectural abnormality or abnormal calcifications. The skin contours are smooth. No skin thickening or coarsening of the Alf's ligaments. No axillary adenopathy demonstrated. There are accentuated reticular markings bilateral axilla near areas of clinical palpable concern. Ultrasound ultrasound bilateral axilla demonstrates no cystic or solid mass or architectural abnormality. No lymphadenopathy. No skin thickening or edema tracking in soft tissue planes. Results are discussed with the patient at time of visit. The previous right axillary biopsy 2016 (no clip placed) revealed benign breast tissue. The bilateral axillary reticular markings likely represent accessory breast tissue. Suggest follow-up bilateral mammography in 6 months. US/US breast LT limited IMPRESSION: -No mammographic or ultrasound evidence of malignancy. -Probable accessory breast tissue bilateral axilla. ASSESSMENT: BI-RADS 3: Probably Benign RECOMMENDATION: Diagnostic bilateral mammography in 6 months. Assessment & Plan Assessment & Plan (1) Encounter for annual routine gynecological examination: Code(s): Z01.419 - Encounter for gynecological examination (general) (routine) without abnormal findings Plan: Discussed: Current recommendations for pap smears per ASCCP guidelines. Breast awareness and periodic self breast exams. Mammogram scheduled for 04/17/23. Maintaining a healthy lifestyle including a well balanced diet and routine exercise. Encouraged condom use for STD prevention. Cultures for STD testing and labs for BV screening ordered today. All of her questions and concerns were addressed to the best of my ability She will follow up to discuss test results when completed. She will return in one year for AG. (2) Hot flashes: Code(s): R23.2 - Flushing Plan: Counseled on hot flashes. Discussed work up including FSH and TSH. She completed a TSH recently and results were within normal limits. Still experiencing regular menses. Avoid spicy foods and alcohol. Wear light, layered clothing. Sleep with fan on. Can also try a cooling pillow or mattress. Stay well hydrated. (3) Left breast mass: Code(s): N63.20 - Unspecified lump in the left breast, unspecified quadrant Plan: Increased fullness in the left breast at ~12:00 above the nipple. Mammogram scheduled for 11/29/23. US ordered today, with focus on left breast. Orders: Orders CT NG by PCR Today N89.8 - Other specified noninflammatory disorders of vagina, Z20.2 - Contact with and (suspected) exposure to infections with a predominantly sexual mode of transmission US breast LT complete Today N63.20 - Unspecified lump in the left breast, unspecified quadrant Hepatitis C Antibody Today Z20.2 - Contact with and (suspected) exposure to infections with a predominantly sexual mode of transmission Hepatitis B Core Antibody Today Z20.2 - Contact with and (suspected) exposure to infections with a predominantly sexual mode of transmission Bacterial Vaginosis Panel Today N89.8 - Other specified noninflammatory disorders of vagina, Z20.2 - Contact with and (suspected) exposure to infections with a predominantly sexual mode of transmission HIV Ab/Ag Today Z20.2 - Contact with and (suspected) exposure to infections with a predominantly sexual mode of transmission Syphilis Screen Today Z20.2 - Contact with and (suspected) exposure to infections with a predominantly sexual mode of transmission Coding Level of Care Code Est Pt Prev Care 18-39y(36695) Diagnoses Encounter for annual routine gynecological examination Z01.419 Hot flashes R23.2 Left breast mass N63.20
[2023-03-27 10:02] VITALS: BP 114/70; BMI 29.2
== END 2023-03-27 10:58 | disposition home or self-care (01) ==
LOC: HO.HWS 09:57
PROVIDERS: PCP Internal Medicine; Visit Provider Advanced Practice Midwife
DX: Z01.419 Encounter for gynecological examination (general) (routine) without abnormal findings (principal); R23.2 Flushing; N63.20 Unspecified lump in the left breast, unspecified quadrant
CPT/HCPCS: 99395

== ENCOUNTER 2023-03-27 09:57 | Outpatient (REF) | payer OTHER, SELFPAY | END 2023-03-27 09:58 | disposition home or self-care (01) | LOC: HO.LNP 09:57 | PROVIDERS: PCP Internal Medicine; Visit Provider Advanced Practice Midwife | DX: Z13.89 Encounter for screening for other disorder (principal) ==

== ENCOUNTER 2023-03-27 10:23 | Outpatient (REF) | payer OTHER, SELFPAY ==
[2023-03-28 12:54] LABS: BV Int Neg Control Negative (Negative); BV Int Pos Control Positive (Positive)
== END 2023-03-27 10:24 | disposition home or self-care (01) ==
LOC: HO.LAB 10:23
PROVIDERS: Visit Provider Advanced Practice Midwife
DX: Z20.2 Contact with and (suspected) exposure to infections with a predominantly sexual mode of transmission (principal); N89.8 Other specified noninflammatory disorders of vagina
CPT/HCPCS: 87480; 87510; 87660

== ENCOUNTER 2023-03-27 10:37 | Outpatient (REF) | payer OTHER, SELFPAY ==
[2023-03-27 12:20] LABS: HBc Num1 0.06 S/CO (0.00-0.79); HIV AB/AG Nonreactive (Nonreactive); HIV Num 1 0.06 S/CO (0.00-0.99); Hepatitis B Core Antibody Nonreactive (Nonreactive); ~HepC Num1 0.06 S/CO (0.00-0.79); ~Hepatitis C Antibody Nonreactive (Nonreactive)
[2023-03-27 12:23] LABS: Syphilis Screen Nonreactive (Nonreactive)
[2023-03-27 14:05] LABS: CT PCR NOT DETECTED (Not Detect.); NG PCR NOT DETECTED (Not Detect.)
== END 2023-03-27 10:38 | disposition home or self-care (01) ==
LOC: HO.LAB 10:37
PROVIDERS: PCP Internal Medicine; Visit Provider Advanced Practice Midwife
DX: Z11.4 Encounter for screening for human immunodeficiency virus [HIV] (principal); Z20.2 Contact with and (suspected) exposure to infections with a predominantly sexual mode of transmission; N89.8 Other specified noninflammatory disorders of vagina
CPT/HCPCS: 0353U; 86704; 86780; 86803; 87389

== ENCOUNTER 2023-04-17 13:45 | Outpatient (REF) | payer OTHER, SELFPAY ==
--- NOTE | ~2023-04-17 | US_ITS ---
EXAMINATION: MM DIAGNOSTIC DIGITAL BREAST TOMOSYNTHESIS, BILATERAL US BREAST LIMITED, LEFT MAMMOGRAPHY: CLINICAL INFORMATION: Patient complaining of thickening feeling in the 12:00 region of the left breast. Also follow-up for reticular markings in both axillary regions. Patient due for bilateral screening. COMPARISON: 09/13/2022, mammography and bilateral ultrasonography. TECHNIQUE: Digital breast tomosynthesis is performed in both the craniocaudal and mediolateral oblique views along with computer-aided detection (CAD). Synthesized 2D images are generated from the tomosynthesis. FINDINGS: The breasts are extremely dense, which lowers the sensitivity of mammography (ACR BI-RADS breast composition Category d). There is a rounded mass in the left breast retroareolar region approximately 3-4 cm posterior to the nipple along the nipple line. This will be evaluated by ultrasound. Otherwise, there are no masses which can be distinguished from the extremely dense breast parenchyma. There are no suspicious grouped calcifications, or regions of architectural distortion in either breast. There appears to be a dense ridge of tissue in the superior left breast, likely accounting for the palpable abnormality. ULTRASOUND: CLINICAL INFORMATION: Patient complaining of thickening feeling in the 12:00 region of the left breast. COMPARISON: 08/24/2022. TECHNIQUE: Targeted sonographic evaluation was performed using a high frequency linear transducer. Attention was performed to the superior left breast in the region of palpable concern. Selected archived documentation. FINDINGS: LEFT BREAST: There is extremely dense fibroglandular tissue present throughout the left breast. There is a cyst with good through transmission at the 12:00 axis, 2 cm from the nipple, lying somewhat deep approximately 2.5 cm. More superficially, in the 1:00 axis, 1 cm from the nipple, there is an oval slightly hypoechoic mass measuring 0.4 x 0.5 x 0.7 cm. This appears to have subtle cystic areas. This is indeterminant and biopsy is recommended. A most likely relates to a benign entity such as a fibroadenoma or variant. US/US breast LT limited mamm only IMPRESSION: Suspicious oval 8 mm mass in the left breast 1:00 axis, 1 cm from the nipple, for which ultrasound-guided biopsy is recommended. There is a cyst at the 12:00 axis which is somewhat deep, with good through transmission measuring approximately 5 mm. Because of the depth, six-month interval follow-up ultrasound recommended to ensure stability. The patient has extremely dense breast tissue bilaterally. There is a dense ridge of tissue in the superior left breast, likely accounting for the palpable ridge felt. No additional suspicious findings in either breast. OVERALL ASSESSMENT: Mammography: BI-RADS 4 - Suspicious finding Ultrasound: BI-RADS 4 - Suspicious finding RECOMMENDATION: Biopsy recommended Results were provided to the patient at time of visit by the technologist. This patient's information was entered into a reminder system with a target due date for their next mammogram.
== END 2023-04-17 13:46 | disposition home or self-care (01) ==
LOC: HO.MAMMO 13:45
PROVIDERS: PCP Internal Medicine; Visit Provider Advanced Practice Midwife
DX: N63.25 Unspecified lump in the left breast, overlapping quadrants (principal)
CPT/HCPCS: 76642; 77062; 77066

== ENCOUNTER → 2023-04-17 14:00 | Outpatient (BNV) | payer OTHER, SELFPAY | PROVIDERS: PCP Internal Medicine; Visit Provider Radiology Diagnostic Radiology | DX: R92.323 Mammographic fibroglandular density, bilateral breasts (principal); N63.25 Unspecified lump in the left breast, overlapping quadrants; N63.21 Unspecified lump in the left breast, upper outer quadrant | CPT/HCPCS: 76642; 77062; 77066 ==

== ENCOUNTER 2023-04-24 08:25 | Outpatient (AMB) | payer OTHER, SELFPAY ==
--- NOTE | 2023-04-24 08:31 | A.OFFVIS_ITS ---
Intake Vital Signs 04/24/23 08:39 Height 5 ft 3 in Weight 162 lb BMI 28.7 BP 119/75 Blood Pressure Location Rt brachial Position Sitting Pulse 68 Intake Visit Reasons: US guided bx lft breast -1 o'clock density Intake Note: This patient presents for an assessment for Ultrasound guided biopsy left breast 1 o'clock density. Patient c/o; reports occasional stabbing pain's left breast, reports no change in size of shape of breast, reports no nipple discharge. Agricultural Purchasing Agent Required: No Accompanied by: Self / Same As Patient Allergies seafood Allergy (Unknown, Verified 04/24/23 08:39) Unknown HPI US guided bx lft breast -1 o'clock density HPI Details 38-year-old female referred for left gil ast mass. She had seen her coffee break attendant for routine visit and was told that her left breast seemed to be thick so she was sent for mammogram and ultrasound. She says she did not feel any breast mass. Her imaging study showed showed an oval, slightly hypoechoic mass about 0.4 x 0.5 x 0.7 cm at the 1 o'clock position of the left breast. A biopsy had been recommended. She also had dense fibroglandular left breast tissue. Her menarche was at the age of 12. Her 1st was at age of 18. She had 2 pregnancies. She still has her periods. She denies any strong family history of breast PFSH Medical History Lump of axillary tail of left breast Vitamin D deficiency Migraine with aura Obesity (BMI 30-39.9) Surgical History Hx of tubal ligation History of section Family History (Updated 04/24/23 @ 08:40 by CAITY Lantigua) Father No problems noted. 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 Sexual orientation: Straight/Heterosexual Gender identity: Female Cognitive needs: No Hearing needs: No Vision needs: No Female Reproductive History Menstrual Age of Menarche: 12 Total pregnancies: 2 Review of Systems Const Denies chills and Denies fever(s) Card Denies chest pain, Denies dyspnea and Denies dyspnea on exertion Resp Denies cough, Denies dyspnea and Denies dyspnea on exertion GI Denies hematochezia and Denies change in bowel habits Denies hematuria Musc Denies back pain and Denies limited range of motion Neuro Denies focal weakness and Denies convulsions Psych Denies depression and Denies mood swings Physical Exam Vital Signs: Last Vital Signs Pulse 68 04/24/23 08:39 BP 119/75 04/24/23 08:39 BMI result Body Mass Index 28.7 Const General: comfortable and no acute distress Orientation/consciousness: patient oriented x3 Neck Neck: Yes no lymphadenopathy Chest Other: No palpable breast masses, no nipple or skin changes, no axillary lymphadenopath y Resp Auscultation: clear to auscultation bilaterally Cardio Rhythm: regular rhythm GI Palpation (GI): Soft to palpation, nontender and no guarding Neuro General: patient oriented x3 Assessment & Plan Assessment & Plan (1) Left breast mass: Code(s): N63.20 - Unspecified lump in the left breast, unspecified quadrant Plan: She has a small left breast density seen on imaging studies as described above. This is probably fibroadenoma. An ultrasound biopsy had been recommended. I explained to her the technique of this procedure. I will see her again in the office next week to discuss the path report. Orders: Orders US breast ndl core biopsy LT 04/23/23 N63.20 - Unspecified lump in the left breast, unspecified quadrant Coding Level of Care Code New Pt Level 3 (79909) Diagnoses Left breast mass N63.20
[2023-04-24 08:39] VITALS: BP 119/75; PULSE 68; BMI 28.7
== END 2023-04-24 09:07 | disposition home or self-care (01) ==
PROVIDERS: PCP Internal Medicine; Visit Provider Surgery
DX: N63.20 Unspecified lump in the left breast, unspecified quadrant (principal)
CPT/HCPCS: 99203

== ENCOUNTER 2023-04-24 09:52 | Outpatient (REF) | payer OTHER, SELFPAY ==
--- NOTE | ~2023-04-24 | US_ITS ---
PROCEDURE: US GUIDED BREAST BIOPSY, LEFT CLINICAL INFORMATION: Small oval mass left breast 1:00 axis, 1 cm from the nipple, recommended for biopsy. COMPARISON: 04/17/2023. PROCEDURAL DETAILS: The details of the procedure, as well as the risks, benefits, and alternatives to the procedure were explained to the patient in detail and all of her questions were answered, after which written informed consent was obtained. Site and side were confirmed. Prior to the procedure, sonography revealed an oval subcutaneous hypoechoic circumscribed mass, with possible small cystic areas, 1:00 axis left breast, 1 cm from the nipple, measuring 0.7 x 0.8 x 0.5 cm. A time-out was performed, the lesion intended for biopsy was targeted, and the skin of the left breast was then prepped and draped in the usual sterile fashion. Using sonographic guidance, sterile technique, and 1% lidocaine without epinephrine for local anesthesia, multiple core biopsies were obtained through the targeted area with a 14G spring loaded [employer] core biopsy device. There was real-time confirmation of appropriate needle passage. Sampling was documented. At the completion of tissue sampling, a single open coil metallic clip was deposited at the biopsy site. There was no evidence of immediate complication. SPECIMEN: An appropriate sample was obtained. DIGITAL POST-PROCEDURE MAMMOGRAPHY: Breast density: The tissue contains scattered areas of fibroglandular density. BI-RADS version 5, category B. There are no new mammographic findings demonstrated. The postprocedure 2-view direct digital mammogram reveals satisfactory positioning of the biopsy clip. The patient tolerated the procedure well and, after assuring adequate hemostasis, was discharged in good condition after reviewing postbiopsy breast care instructions. Final pathology results are pending. US/US breast ndl core biopsy LT IMPRESSION: 1. No immediate complication from ultrasound-guided percutaneous biopsy left breast. 2. Ultrasound was used to localize and guide marker clip placement. 3. The 2-view direct digital postprocedure mammogram reveals satisfactory positioning of the biopsy clip. 4. Final pathology results are pending. A separate report with final recommendations will be issued once these results are made available.
[2023-04-24] MEDS: Sodium Bicarbonate 8.4% 50 MEQ/50 ML VIAL SUBCUT (11:17)
[2023-04-24] MEDS: Lidocaine HCl 1 % 20 ML VIAL 9 ML SUBCUT (11:18)
== END 2023-04-24 09:53 | disposition home or self-care (01) ==
LOC: HO.MAMMO 09:52
PROVIDERS: Absent Provider Advanced Practice Midwife; PCP Internal Medicine; Visit Provider Surgery
DX: N63.21 Unspecified lump in the left breast, upper outer quadrant (principal)
CPT/HCPCS: 19083; 77061; 77065; 88305; A4648; C1894

== ENCOUNTER → 2023-04-24 10:00 | Outpatient (BNV) | payer OTHER, SELFPAY | PROVIDERS: Absent Provider Advanced Practice Midwife; PCP Internal Medicine; Visit Provider Radiology Diagnostic Radiology | DX: D24.2 Benign neoplasm of left breast (principal) | CPT/HCPCS: 19083; 77061; 77065 ==

== ENCOUNTER → 2023-05-01 13:58 | Outpatient (BNVA) | payer OTHER, SELFPAY | PROVIDERS: PCP Internal Medicine; Visit Provider Advanced Practice Midwife ==

== ENCOUNTER 2023-05-02 10:25 | Outpatient (AMB) | payer OTHER, SELFPAY ==
[2023-05-02 10:36] VITALS: BP 126/68; PULSE 72; BMI 28.5
--- NOTE | 2023-05-02 10:36 | A.OFFVIS_ITS ---
Intake Vital Signs 05/02/23 10:36 Height 5 ft 3 in Weight 161 lb 2 oz BMI 28.5 BP 126/68 Blood Pressure Location Lt brachial Position Sitting Pulse 72 Intake Visit Reasons: S/p US guided bx lft breast -1 o'clock density Intake Note: This patient presents for a follow-up assessment for breast biopsy results. Patient c/o; reports no changes or complaints at this time. Pediatric Allergist Required: No Accompanied by: Self / Same As Patient Allergies seafood Allergy (Unknown, Verified 05/02/23 10:36) Unknown Medication List - Last Reconciled 05/02/23 by Jonyn Pichardo MD albuterol sulfate 90 mcg/actuation (ProAir HFA) 2 puffs inhalation Q6H PRN 30 days epwcrzlugc-rpcmjngefwxtp-dydh 50-325-40 mg 1 cap PO Q6-8H PRN 30 days cholecalciferol (vitamin D3) 25 mcg PO DAILY naproxen 500 mg PO BID PRN sumatriptan succinate 50 mg PO Q2H PRN HPI S/p US guided bx lft breast -1 o'clock density HPI Details She had undergone ultrasound-guided biopsy of the left breast last 04/24/2023. She is here to discuss the path report. She denies any problems with the biopsy site [facility] [place] Medical History (Updated 05/02/23 @ 10:57 by Jonny Pichardo MD) Pseudoangiomatous stromal hyperplasia of breast Lump of axillary tail of left breast Vitamin D deficiency Migraine with aura Obesity (BMI 30-39.9) Surgical History Hx of tubal ligation History of section Family History Father No problems noted. 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 Sexual orientation: Straight/Heterosexual Gender identity: Female Cognitive needs: No Hearing needs: No Vision needs: No Female Reproductive History Menstrual Age of Menarche: 12 Review of Systems Const Denies chills and Denies fever(s) Card Denies chest pain, Denies dyspnea and Denies dyspnea on exertion Resp Denies cough, Denies dyspnea and Denies dyspnea on exertion GI Denies hematochezia and Denies change in bowel habits Denies hematuria Musc Denies back pain and Denies limited range of motion Neuro Denies focal weakness and Denies convulsions Psych Denies depression and Denies mood swings Physical Exam Vital Signs: Last Vital Signs Pulse 72 05/02/23 10:36 BP 126/68 05/02/23 10:36 BMI result Body Mass Index 28.5 Const General: comfortable and no acute distress Chest Other: No ecchymosis on left breast biopsy site, no hematoma Resp Effort & Inspection: normal respiratory effort Assessment & Plan Assessment & Plan (1) Left breast mass: Code(s): N63.20 - Unspecified lump in the left breast, unspecified quadrant Plan: Status post ultrasound guided biopsy. The path report shows pseudoangiomatous stromal hyperplasia with no atypia or hyperplasia. I explained to her the benign nature of this pathology I reminded her to continue doing yearly screening mammograms She can follow up on a p.r.n. basis. (2) Pseudoangiomatous stromal hyperplasia of breast: Code(s): N64.89 - Other specified disorders of breast Plan: I explained to her the benign nature of this pathology. Coding Level of Care Code Est Pt Level 2 (90107) Diagnoses Left breast mass N63.20 Pseudoangiomatous stromal hyperplasia of breast N64.89
== END 2023-05-02 10:55 | disposition home or self-care (01) ==
PROVIDERS: PCP Internal Medicine; Visit Provider Surgery
DX: N63.20 Unspecified lump in the left breast, unspecified quadrant (principal); N64.89 Other specified disorders of breast
CPT/HCPCS: 99212

== ENCOUNTER → 2023-05-02 10:25 | Outpatient (BNVA) | payer OTHER, SELFPAY | PROVIDERS: PCP Internal Medicine; Visit Provider Surgery | DX: N63.20 Unspecified lump in the left breast, unspecified quadrant (principal) ==

== ENCOUNTER 2023-07-05 15:49 | Outpatient (AMB) | payer OTHER, SELFPAY ==
[2023-07-05 15:54] VITALS: BP 106/82; PULSE 56; O2SAT 97; BMI 28.3
--- NOTE | 2023-07-05 15:54 | MHC.PC.OV ---
Vital Signs 07/05/23 15:54 Height 5 ft 3 in Weight 160 lb BMI 28.3 BP 106/82 Blood Pressure Location Lt brachial Position Sitting Pulse 56 Pulse Source Pulse Oximeter Pulse Oximetry (%) 97 Oxygen Delivery Method Room Air Intake Visit Reasons: migraine headaches, vitamin D deficiency Second Miller Required: No Accompanied by: Self / Same As Patient Allergies seafood Allergy (Unknown, Verified 07/05/23 16:25) Unknown Medication List - Last Reconciled 07/05/23 by Jersey Cardoso MD albuterol sulfate 90 mcg/actuation (ProAir HFA) 2 puffs inhalation Q6H PRN 30 days lwrwfrbecg-soxkumamvdjdg-iapj 50-325-40 mg 1 cap PO Q6-8H PRN 30 days cholecalciferol (vitamin D3) 25 mcg PO DAILY naproxen 500 mg PO BID PRN sumatriptan succinate 50 mg PO Q2H PRN Tobacco use date assessed: 07/05/23 Dental Screening Dental Screen Date: 07/05/23 Did you have a dental visit in the last 12 months?: No Did you have a dental problem in the last 6 months where you did not have access to dental care?: No Was dental information given to patient?: Patient has dentist HPI migraine headaches, vitamin D deficiency HPI Details Patient comes in today for her follow up visit States that she feels okay She denies any headaches or dizziness - states that her migraine headaches have been well-controlled lately Denies any chest pains, no SOB No nausea/vomiting, no abdominal pain No change in bowel habits noted She recently discovered a breast lump/cyst and had work ups done, which came out benign Would like to know how she did on her labs done back in December 2022 [facility] Medical History (Updated 07/05/23 @ 16:46 by Jersey Cardoso MD) Overweight (BMI 25.0-29.9) Pseudoangiomatous stromal hyperplasia of breast Lump of axillary tail of left breast Vitamin D deficiency Migraine with aura Obesity (BMI 30-39.9) Surgical History Hx of tubal ligation History of section Family History Father No problems noted. 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 1. Little interest or pleasure in doing things: not at all 2. Feeling down, depressed, or hopeless: not at all 3. Trouble falling or staying asleep, or sleeping too much: not at all 4. Feeling tired or having little energy: not at all 5. Poor appetite or overeating: not at all 6. Feeling bad about yourself - or that you are a failure or have let yourself or your family down: not at all 7. Trouble concentrating on things, such as reading the newspaper or watching television: not at all 8. Moving or speaking so slowly that other people could have noticed. Or the opposite - being so fidgety or restless that you have been moving around a lot more than usual: not at all 9. Thoughts that you would be better off or of hurting yourself in some way: not at all Total score: 0 Depression Screening Interpretation: Negative Depression Screening Done: Yes 43178 - PHQ-9 Billing: Yes Source: Developed by Drs. Viktor Ramirez, Lisa Zafar, Henok Doherty and colleagues, with an educational yolette from [employer]. Thrive Questionnaire Date Thrive assessed: 07/05/23 I am a: Patient What is your living situation today?: I have a steady place to live Within the past 12 months, did the food you bought not last and you didn't have the money to get more?: Never true Within the past 12 months, did you worry whether your food would run out before you got money to buy more?: Never true Do you have trouble paying for medicines?: No Do you have trouble getting transportation to medical appointments?: No Do you have trouble paying your heating and electricity bill?: No Do you have trouble taking care of your child, family member or friend?: No Do you have trouble with day-to-day activities such as bathing, preparing meals, shopping, managing finances, etc.?: No Are you currently unemployed and looking for a job?: No Are you interested in more education?: No Please select the resources that you would like help with: None Currently or been in a relationship where the following occur: no concerns reported THRIVE Score: 0 AUDIT C Alcohol Use Questionnaire (AUDIT-C) 1. How often do you have a drink containing alcohol?: Never 3. How often do you have six or more drinks on one occasion?: Never Total Score: 0 Score Reviewed/Action Taken: Yes LISANDRO-7 AMB Questionnaire LISANDRO-7 Date LISANDRO - 7 assessed: 07/05/23 Feeling nervous, anxious, or on edge: 0 = Not at all Not being able to stop or control worryin = Not at all Worrying too much about different things: 0 = Not at all Trouble relaxin = Not at all Being so restless that it is hard to sit still: 0 = Not at all Becoming easily annoyed or irritable: 0 = Not at all Feeling afraid as if something awful might happen: 0 = Not at all Total LISANDRO-7 score (0-4 normal; 5-9 mild; 10-14 moderate; 15-21 severe): 0 Source: Developed by Drs. Viktor Ramirez, Lisa Zafar, Henok Doherty and colleagues, with an educational yolette from [employer]. LISANDRO-7 Assessment Billing LISANDRO-7 Assessment Tool: LISANDRO-7 Assessment 58950 Review of Systems Const Denies chills, Denies fatigue, Denies fever(s) and Denies headache(s) ENT Denies dysphagia, Denies dizziness, Denies otalgia, Denies headache(s), Denies neck pain, Denies odynophagia and Denies sore throat Card Denies chest pain, Denies palpitations and Denies dyspnea Resp Denies cough and Denies dyspnea GI Denies abdominal pain, Denies constipation, Denies dysphagia, Denies heartburn, Denies diarrhea, Denies nausea, Denies odynophagia and Denies vomiting Denies difficulty voiding, Denies nocturia, Denies dysuria and Denies urinary urgency Musc Denies back pain and Denies neck pain Skin/Breast Denies rash Neuro Denies dizziness and Denies headache(s) Endo Denies fatigue and Denies palpitations Physical exam (Primary Care) Vital Signs: Last Vital Signs Pulse 56 07/05/23 15:54 BP 106/82 07/05/23 15:54 Pulse Ox 97 07/05/23 15:54 Oxygen Delivery Method Room Air 07/05/23 15:54 BMI result Body Mass Index 28.3 Tobacco/Smoking Status: Tobacco use Status Tobacco use date assessed 07/05/23 07/05/23 15:59 Patient Tobacco Use Status Never used Tobacco 07/05/23 15:59 e-Cigarette/Vaping Use Never Used 07/05/23 15:59 PHQ-9: PHQ-9 Score PHQ-9: Total score 0 07/05/23 15:59 Depression Screening Interpretation: Negative Thrive Assessment: Date of Thrive Assessment Date Thrive assessed 07/05/23 07/05/23 15:59 Currently or been in a relationship where the following occur: no concerns reported Const General: no acute distress and alert HENMT Ears: TM's normal bilaterally and EAC's normal Throat: Yes posterior oropharynx normal and Yes tonsils normal (no TP congestion) Neck Neck: Yes no lymphadenopathy and Yes supple Thyroid: Thyroid normal Resp Auscultation: clear to auscultation bilaterally, no rales and no wheezes Cardio Rate: regular rate Rhythm: regular rhythm Heart sounds: no murmurs GI Palpation (GI): Soft to palpation and nontender Auscultation: normal bowel sounds General: Yes no CVA tenderness Back/Spine/Pelvis Back: no CVA tenderness Skin Rashes: no rashes Extrem General: Yes no clubbing, cyanosis or edema Results Reviewed Results Reviewed: Laboratory Tests 01/01/23 01/01/23 01/01/23 09:17 09:18 09:18 WBC 7.3 Hgb 12.6 Hct 38.0 Plt Count 249 Sodium 139 Potassium 4.1 Creatinine 0.81 Estimated GFR > 60 Fasting Glucose 101 H Calcium 9.5 AST 14 ALT 13 Triglycerides 97 Cholesterol 156 LDL Cholesterol, Calc 103 HDL Cholesterol 34 25-OH Vitamin D Total 32.2 TSH 0.65 Ur Specific [place] >= 1.030 H Urine Protein Trace Urine Glucose (UA) Negative Urine Blood Small (1+) H Urine Nitrite Negative Ur Leukocyte Esterase Negative Assessment and Plan Assessment & Plan (1) Migraine: Code(s): G43.909 - Migraine, unspecified, not intractable, without status migrainosus Qualifiers: Migraine type: unspecified Status migrainosus presence: without status migrainosus Intractability: not intractable Qualified Code(s): G43.909 - Migraine, unspecified, not intractable, without status migrainosus Plan: Stable - patient again states that she only has about 1 to 2 episodes of headaches a month and that these have been mostly well-controlled Continue Fioricet 50-325-40 mg PRN and/or Sumatriptan 50 mg PRN She is reminded again to call if her migraine headaches progress or get worse (2) Vitamin D deficiency: Code(s): E55.9 - Vitamin D deficiency, unspecified Plan: Continue Vitamin D3 1000 units QD Advised that her labs done back in December 2022 all came out okay (3) Pseudoangiomatous stromal hyperplasia of breast: Code(s): N64.89 - Other specified disorders of breast Plan: Work ups done so far have all come back showing that the lesion/lump on her left breast is a benign lesion - reassured (4) Overweight (BMI 25.0-29.9): Code(s): E66.3 - Overweight Plan: Reinforced diet/exercise as tolerated/lose weight Plan To return in 6 months for her next annual physical examination Orders: Orders Complete Blood Count Auto Diff 01/19/24 D64.9 - Anemia, unspecified, Z00.00 - Encounter for general adult medical examination without abnormal findings Comprehensive [place]. Panel Fast 01/19/24 E78.00 - Pure hypercholesterolemia, unspecified, Z00.00 - Encounter for general adult medical examination without abnormal findings Lipid Panel 01/19/24 E78.00 - Pure hypercholesterolemia, unspecified, Z00.00 - Encounter for general adult medical examination without abnormal findings TSH reflex Free T4 01/19/24 E78.00 - Pure hypercholesterolemia, unspecified, Z00.00 - Encounter for general adult medical examination without abnormal findings UA CC w/rflx Micro + Cult 01/19/24 R30.0 - Dysuria, Z00.00 - Encounter for general adult medical examination without abnormal findings Vitamin D 25-OH Total 01/19/24 E55.9 - Vitamin D deficiency, unspecified, Z00.00 - Encounter for general adult medical examination without abnormal findings Coding Level of Care Code Est Pt Level 4 (36323) Diagnoses Migraine without status migrainosus, not intractable, unspecified migraine type G43.909 Migraine type: unspecified Status migrainosus presence: without status migrainosus Intractability: not intractable Vitamin D deficiency E55.9 Pseudoangiomatous stromal hyperplasia of breast N64.89 Overweight (BMI 25.0-29.9) E66.3 Additional Codes LISANDRO-7 Assessment Billing - LISANDRO-7 Assessment Tool: LISANDRO-7 Assessment [id number] ([id number])
== END 2023-07-05 16:31 | disposition home or self-care (01) ==
PROVIDERS: PCP Internal Medicine; Visit Provider Internal Medicine
DX: G43.909 Migraine, unspecified, not intractable, without status migrainosus (principal); E55.9 Vitamin D deficiency, unspecified; N64.89 Other specified disorders of breast; E66.3 Overweight
CPT/HCPCS: 99214

== ENCOUNTER 2023-08-29 11:26 | Outpatient (AMB) | payer OTHER, SELFPAY ==
[2023-08-29 11:26] VITALS: BP 136/86; PULSE 110; TEMP 37.7; O2SAT 97; BMI 27.8
--- NOTE | 2023-08-29 11:26 | MHC.OFFWIV ---
Intake Vital Signs 08/29/23 11:26 Height 5 ft 3 in Weight 157 lb BMI 27.8 BP 136/86 Blood Pressure Location Lt brachial Position Sitting Pulse 110 H Pulse Source Pulse Oximeter Temp 99.9 F Temp Source Oral Pulse Oximetry (%) 97 Oxygen Delivery Method Room Air Intake Visit Reasons: EP Cough, headache, body ache Intake Note: Pt presents to the office today for c/o cough,headache, body aches that started yesterday. Patient Tobacco Use Status: Never used Tobacco Allergies seafood Allergy (Unknown, Verified 08/29/23 11:27) Unknown HPI EP Cough, headache, body ache HPI Details This is a 38 year old female patient who presents today with a one day history of generalized fatigue and body aches, dry cough, nasal congestion, headache. She reports a history of asthma and has inhaler but does not have any refills for nebulizer. Denies any fever however reports being very sweaty all night last night. Denies known exposure to sick contacts. Denies any GI symptoms. [facility] Medical History Upper respiratory infection Overweight (BMI 25.0-29.9) Pseudoangiomatous stromal hyperplasia of breast Lump of axillary tail of left breast Vitamin D deficiency Migraine with aura Obesity (BMI 30-39.9) Surgical History Hx of tubal ligation History of section Family History Father No problems noted. 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 Sexual orientation: Straight/Heterosexual Gender identity: Female Cognitive needs: No Hearing needs: No Vision needs: No Female Reproductive History Menstrual Age of Menarche: 12 Review of Systems Const All systems reviewed & are unremarkable except as noted in HPI and below Physical Exam Vital Signs: Last Vital Signs Temp 99.9 F 08/29/23 11:26 Pulse 110 H 08/29/23 11:26 BP 136/86 08/29/23 11:26 Pulse Ox 97 08/29/23 11:26 Oxygen Delivery Method Room Air 08/29/23 11:26 BMI result Body Mass Index 27.8 Const General: cooperative and ill appearing acutely HEENT Head: Yes normal to inspection Ears: hearing grossly normal bilaterally General nose exam: Normal external nose present and Nasal discharge present mucoid Face and sinus: Yes normal facial exam Throat: Yes posterior oropharynx normal Neck Neck: Yes no lymphadenopathy Resp Effort & Inspection: normal respiratory effort and Actively coughing Quality: dry Auscultation: clear to auscultation bilaterally Cardio Rate: regular rate Rhythm: regular rhythm Skin General skin exam: no rashes or lesions noted Extrem General: Yes capillary refill normal and Yes no clubbing, cyanosis or edema Psych Appearance: grossly normal Mental Status: mental status grossly normal Speech and movement: Normal speech and movement present Assessment & Plan Assessment & Plan (1) Upper respiratory infection: Code(s): J06.9 - Acute upper respiratory infection, unspecified Qualifiers: URI type: unspecified viral URI Qualified Code(s): J06.9 - Acute upper respiratory infection, unspecified Plan: Symptoms consistent with viral illness. Covid/Flu/RSV swab obtained and patient aware she will be notified of results once these are available. We discussed conservative measures for symptom management, including rest, hydration, healthy food/vitamin intake, OTC cold/flu products as needed. I am going to prescribe her benzonatate for her cough, and also will refill her albuterol for nebulizer at home. If she does not improve with time and conservative measures, she can return for further evaluation. She agrees to plan. Orders: Orders SARS-CoV2/FLU/RSV Today J06.9 - Acute upper respiratory infection, unspecified Medications: New benzonatate 100 mg PO BID 7 days PRN 14 caps 0RF cough R05.9 - Cough, unspecified albuterol sulfate 0.63 mg (3 mL) inhalation QID PRN 75 mL 0RF shortness of breath or wheezing J06.9 - Acute upper respiratory infection, unspecified Coding Level of Care Code Est Pt Level 4 (86916) Diagnoses Viral upper respiratory tract infection J06.9 URI type: unspecified viral URI
== END 2023-08-29 11:57 | disposition home or self-care (01) ==
PROVIDERS: PCP Internal Medicine; Visit Provider Nurse Practitioner Family
DX: J06.9 Acute upper respiratory infection, unspecified (principal)
CPT/HCPCS: 99214

== ENCOUNTER 2023-08-29 11:43 | Outpatient (REF) | payer OTHER, SELFPAY ==
[2023-08-29 14:26] LABS: Influenza A PCR POSITIVE (Negative); Influenza B PCR NEGATIVE (Negative); Resp Syncy Virus RNA Qual PCR NEGATIVE (Negative); SARS COV2 PCR INHOUSE NEGATIVE (Negative)
== END 2023-08-29 11:44 | disposition home or self-care (01) ==
LOC: HO.LAB 11:43
PROVIDERS: Visit Provider Nurse Practitioner Family
DX: Z11.52 Encounter for screening for COVID-19 (principal); J06.9 Acute upper respiratory infection, unspecified
CPT/HCPCS: 0241U

== ENCOUNTER 2024-01-28 14:52 | Outpatient (AMB) | payer BC, SELFPAY ==
--- NOTE | 2024-01-28 14:54 | A.OFFPC_ITS ---
Vital Signs 01/28/24 14:55 Height 5 ft 3 in Weight 148 lb 2 oz BMI 26.2 BP 110/76 Blood Pressure Location Lt brachial Position Sitting Pulse 74 Pulse Source Pulse Oximeter Pulse Oximetry (%) 98 Oxygen Delivery Method Room Air Intake Visit Reasons: Annual Exam Alternative Financing Specialist Required: No Accompanied by: Self / Same As Patient Allergies seafood Allergy (Unknown, Verified 01/28/24 15:28) Unknown Medication List - Last Reconciled 01/28/24 by Jersey Cardoso MD albuterol sulfate 90 mcg/actuation (ProAir HFA) 2 puffs inhalation Q6H PRN 30 days albuterol sulfate 0.63 mg (3 mL) inhalation QID PRN benzonatate 100 mg PO BID PRN 7 days okbwidzdgh-ejujjesetnano-kavb 50-325-40 mg 1 cap PO Q6-8H PRN 30 days cholecalciferol (vitamin D3) 25 mcg PO DAILY naproxen 500 mg PO BID PRN sumatriptan succinate 50 mg PO Q2H PRN Tobacco use date assessed: 01/28/24 Dental Screening Dental Screen Date: 01/28/24 Did you have a dental visit in the last 12 months?: Yes Did you have a dental problem in the last 6 months where you did not have access to dental care?: No Was dental information given to patient?: Patient has dentist HPI Annual Exam HPI Details Patient comes in today for her annual physical examination States that she currently feels okay Reports that she was experiencing some lightheadedness occasionally recently but this seems to have subsided Also relates feeling some pulsations on and off over her temporal areas bilaterally recently and notes (+) headaches when these were occurring - is concerned that she would be feeling her heartbeats in her head and is wondering if this means her blood pressure is going up She has not checked her BP during these times and reports no associated nausea or photophobia during these episodes She denies any chest pains, no increased SOB She has also been experiencing recurrent epigastric discomfort (not pain) and on and off nausea for the past week and states that her symptoms only improved yesterday when she drank some amanda tea - states that her symptoms have not recurred since She denies any acute urinary symptoms She was not able to get her previously ordered labs done yet She had diagnostic mammogram done last April 2023 to evaluate a left breast mass US-guided Bx was done and the lesion came out benign on pathology She was recommended a 6 months follow up and repeat sonogram but she appears to have not had these done since She is advised to try reaching out to the breast cancer team to schedule her follow up appt JAZMIN She has an upcoming appointment in March 2024 for her annual gynecology exam and pap smear [facility] Medical History (Updated 02/02/24 @ 17:40 by Jersey Cardoso MD) Overweight (BMI 25.0-29.9) Pseudoangiomatous stromal hyperplasia of breast Lump of axillary tail of left breast Vitamin D deficiency Migraine with aura Obesity (BMI 30-39.9) Surgical History Hx of tubal ligation History of section Family History Father No problems noted. 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 1. Little interest or pleasure in doing things: not at all 2. Feeling down, depressed, or hopeless: not at all 3. Trouble falling or staying asleep, or sleeping too much: not at all 4. Feeling tired or having little energy: not at all 5. Poor appetite or overeating: not at all 6. Feeling bad about yourself - or that you are a failure or have let yourself or your family down: not at all 7. Trouble concentrating on things, such as reading the newspaper or watching television: not at all 8. Moving or speaking so slowly that other people could have noticed. Or the opposite - being so fidgety or restless that you have been moving around a lot more than usual: not at all 9. Thoughts that you would be better off or of hurting yourself in some way: not at all Total score: 0 Depression Screening Interpretation: Negative Depression Screening Done: Yes 99171 - PHQ-9 Billing: Yes Source: Developed by Drs. Viktor Ramirez, Lisa Zafar, Henok Doherty and colleagues, with an educational yolette from [employer]. Thrive Questionnaire Date Thrive assessed: 01/28/24 I am a: Patient What is your living situation today?: I have a steady place to live Within the past 12 months, did the food you bought not last and you didn't have the money to get more?: Never true Within the past 12 months, did you worry whether your food would run out before you got money to buy more?: Never true Do you have trouble paying for medicines?: No Do you have trouble getting transportation to medical appointments?: No Do you have trouble paying your heating and electricity bill?: No Do you have trouble taking care of your child, family member or friend?: No Do you have trouble with day-to-day activities such as bathing, preparing meals, shopping, managing finances, etc.?: No Are you currently unemployed and looking for a job?: No Are you interested in more education?: No Please select the resources that you would like help with: None Currently or been in a relationship where the following occur: No concerns reported THRIVE Score: 0 AUDIT C Alcohol Use Questionnaire (AUDIT-C) 1. How often do you have a drink containing alcohol?: Never 3. How often do you have six or more drinks on one occasion?: Never Total Score: 0 Score Reviewed/Action Taken: Yes LISANDRO-7 AMB Questionnaire LISANDRO-7 Date LISANDRO - 7 assessed: 01/28/24 Feeling nervous, anxious, or on edge: 0 = Not at all Not being able to stop or control worryin = Not at all Worrying too much about different things: 0 = Not at all Trouble relaxin = Not at all Being so restless that it is hard to sit still: 0 = Not at all Becoming easily annoyed or irritable: 0 = Not at all Feeling afraid as if something awful might happen: 0 = Not at all Total LISANDRO-7 score (0-4 normal; 5-9 mild; 10-14 moderate; 15-21 severe): 0 Source: Developed by Drs. Viktor Ramirez, Lisa Zafar, Henok Doherty and colleagues, with an educational yolette from [employer]. Review of Systems Const Reports as per HPI, Denies chills, Denies fatigue, Denies fever(s), Reports headache(s) (on and off, incl feeling pulsations over the temporal areas bilaterally) and Denies malaise Eyes Denies blurry vision, Denies change in vision, Denies irritation and Denies itchy eyes ENT Denies dysphagia, Reports dizziness (lightheadedness, on and off - see HPI), Denies otalgia, Reports headache(s) (on and off, incl feeling pulsations over the temporal areas bilaterally), Denies nasal congestion, Denies neck pain, Denies odynophagia, Denies sinus pain and Denies sore throat Card Denies chest pain, Denies rapid heart rate, Denies irregular heart rhythm, Denies palpitations and Denies dyspnea Resp Denies chest congestion, Denies cough, Denies dyspnea and Denies wheezing GI Denies abdominal pain, Denies bloating, Denies constipation, Denies dysphagia, Denies heartburn, Denies diarrhea, Reports nausea (occasionally lately but this seem to have subsided now), Denies odynophagia and Denies vomiting Denies hematuria, Denies urinary frequency, Denies dysuria, Denies urinary incontinence and Denies urinary urgency Musc Denies back pain, Denies arthralgias, Denies joint swelling, Denies muscle weakness and Denies neck pain Skin/Breast Denies breast pain, Denies breast mass, Denies change in pigmentation, Denies lesions, Denies rash and Denies unusual bruising Neuro Reports dizziness (lightheadedness, on and off - see HPI), Reports headache(s) (on and off, incl feeling pulsations over the temporal areas bilaterally) and Denies paresthesias Psych Denies anxiety and Denies depression Endo Denies fatigue and Denies palpitations David/Lymph Denies easy bruising Aller/Immun Denies itchy eyes and Denies wheezing Physical exam (Primary Care) Vital Signs: Last Vital Signs Pulse 74 01/28/24 14:55 BP 110/76 01/28/24 14:55 Pulse Ox 98 01/28/24 14:55 Oxygen Delivery Method Room Air 01/28/24 14:55 BMI result Body Mass Index 26.2 Tobacco/Smoking Status: Tobacco use Status Tobacco use date assessed 01/28/24 01/28/24 14:56 Patient Tobacco Use Status Never used Tobacco 01/28/24 14:56 e-Cigarette/Vaping Use Never Used 01/28/24 14:56 PHQ-9: PHQ-9 Score PHQ-9: Total score 0 01/28/24 15:32 Depression Screening Interpretation: Negative Thrive Assessment: Date of Thrive Assessment Date Thrive assessed 01/28/24 01/28/24 14:56 Currently or been in a relationship where the following occur: No concerns reported Const General: no acute distress, alert and awake Orientation/consciousness: patient oriented x3 HENMT Head: Yes normocephalic and Yes atraumatic Ears: external ears normal, TM's normal bilaterally and EAC's normal General nose exam: No nasal discharge present Face and sinus: Yes normal facial exam and Yes sinuses nontender Teeth and gingiva: dentition normal Throat: Yes posterior oropharynx normal and Yes tonsils normal (no TP co ngestion) Eyes Eyelids: Yes eyelids normal Conjunctivae: conjunctivae normal Pupils: Equal, round and reactive pupils present EOM: EOMs intact bilaterally Neck Neck: Yes no lymphadenopathy and Yes supple Thyroid: Thyroid normal Resp Auscultation: clear to auscultation bilaterally, no rales and no wheezes Cardio Rate: regular rate Rhythm: regular rhythm Heart sounds: no murmurs GI Palpation (GI): Soft to palpation, nontender and No hepatosplenomegaly present Auscultation: normal bowel sounds General: Yes no CVA tenderness Back/Spine/Pelvis Back: no CVA tenderness Thoracic/Lumbar Spine: thoracic and lumbar spine normal to inspection Skin Lesions: no lesions Rashes: no rashes Neuro General: patient oriented x3, moves all extremities, no focal motor deficits and CN's II-XI intact bilaterally Cranial nerves: Yes Equal, round and reactive pupils present Cognition (Neuro): normal cognition Gait exam (Neuro): Normal gait present Extrem General: Yes no clubbing, cyanosis or edema Assessment and Plan Assessment & Plan (1) Annual physical exam: Code(s): Z00.00 - Encounter for general adult medical examination without abnormal findings Plan: Patient has been instructed to go and get her previously ordered labs done JAZMIN She had diagnostic mammogram done last April 2023 to evaluate a left breast mass US-guided Bx was done and the lesion came out benign on pathology She was recommended a 6 months follow up and repeat sonogram but she appears to have not had these done since She is advised to try reaching out to the breast cancer team to schedule her follow up appt JAZMIN She has an upcoming appointment in March 2024 for her annual gynecology exam and pap smear (2) Pseudoangiomatous stromal hyperplasia of breast: Code(s): N64.89 - Other specified disorders of breast Plan: She had diagnostic mammogram done last April 2023 to evaluate a left breast mass US-guided Bx was done and the lesion came out benign on pathology She was recommended follow up and repeat sonogram in 6 months but she appears to have not had these done since She is advised to reach out to the breast cancer team to schedule her follow up appt for this JAZMIN (3) Migraine: Code(s): G43.909 - Migraine, unspecified, not intractable, without status migrainosus Qualifiers: Migraine type: unspecified Status migrainosus presence: without status migrainosus Intractability: not intractable Qualified Code(s): G43.909 - Migraine, unspecified, not intractable, without status migrainosus Plan: Stable Patient again states that she only gets about 1 to 2 episodes of headaches a month and that these have been mostly well-controlled Have advised her that her recent sensations of pulsations over her temporal areas bilaterally may actually be a migraine headache equivalent and do not appear to be due to temporal arteritis or other more severe conditions Continue Fioricet 50-325-40 mg PRN and/or Sumatriptan 50 mg PRN She is reminded again to call if her migraine headaches progress or get worse - may need to have her see neurology again for further evaluation and management (4) Vitamin D deficiency: Code(s): E55.9 - Vitamin D deficiency, unspecified Plan: Continue Vitamin D3 1000 units QD (5) Overweight (BMI 25.0-29.9): Code(s): E66.3 - Overweight Plan: Reinforced diet/exercise as tolerated/lose weight Plan Follow up in 6 months Coding Level of Care Code Est Pt Prev Care [id number]([id number]) Diagnoses Annual physical exam Z00.00 Pseudoangiomatous stromal hyperplasia of breast N64.89 Migraine without status migrainosus, not intractable, unspecified migraine type G43.909 Migraine type: unspecified Status migrainosus presence: without status migrainosus Intractability: not intractable Vitamin D deficiency E55.9 Overweight (BMI 25.0-29.9) E66.3
[2024-01-28 14:55] VITALS: BP 110/76; PULSE 74; O2SAT 98; BMI 26.2
== END 2024-01-28 15:37 | disposition home or self-care (01) ==
PROVIDERS: PCP Internal Medicine; Visit Provider Internal Medicine
DX: Z00.00 Encounter for general adult medical examination without abnormal findings (principal); N64.89 Other specified disorders of breast; G43.909 Migraine, unspecified, not intractable, without status migrainosus; E55.9 Vitamin D deficiency, unspecified; E66.3 Overweight
CPT/HCPCS: 99395

== ENCOUNTER 2024-09-29 09:19 | Outpatient (REF) | payer BC, SELFPAY ==
[2024-09-29 09:31] LABS: MANUAL DIFF FLAG NO
[2024-09-29 10:46] LABS: Basophils Absolute Auto 0.1 X10*3/uL (0.0-0.2); Basophils Percent Auto 0.8 % (0-2); Eosinophils Absolute Auto 0.1 X10*3/uL (0.0-0.4); Eosinophils Percent Auto 1.8 % (0-4); Hematocrit 36.1 % (37.0-47.0); Hemoglobin 12.1 g/dl (12.0-16.0); Imm Gran Abs Auto 0.02 X10*3/uL (0.00-0.03); Imm Gran Pct Auto 0.3 % (0.0-0.4); Lymphocytes Absolute Auto 1.4 X10*3/uL (1.2-4.9); Lymphocytes Percent Auto 23.1 % (20-40); Mean Corpuscular HGB Conc 33.5 g/dl (31.0-35.0); Mean Corpuscular Hemoglobin 28.8 pg (27.0-33.0); Monocytes Absolute Auto 0.4 X10*3/uL (0.1-1.2); Neutrophils Absolute Auto 4.2 x10*3/uL (2.0-8.3); Platelet Count 226 X10*3/uL (160-400); Red Cell Distribution Width 12.7 % (11.0-16.0); White Blood Count 6.2 X10*3/uL (4.8-10.8)
[2024-09-29 11:34] LABS: Appearance Urine Clear; Color Urine Dark Yellow; Glucose Urine UA Negative (Negative); Leukocyte Esterase Urine Negative (Negative); Nitrite Urine Negative (Negative); Specific Gravity - Urine >= 1.030 (1.005-1.025); Urine Blood Negative (Negative); Urine Ketones Trace mg/dL (Negative); Urine Protein Negative (Neg-Trace)
[2024-09-29 11:52] LABS: Alanine Aminotransferase 12 U/L (0-31); Albumin Level 4.1 g/dL (3.5-5.0); Anion Gap 11 (12-20); Aspartate Amino Transferase 18 U/L (5-31); Bilirubin Total 0.3 mg/dL (0.0-1.0); Blood Urea Nitrogen 16 mg/dL (9-16); Calcium 9.2 mg/dL (8.4-10.2); Carbon Dioxide 27 mmol/L (22-29); Chloride 107 mmol/L (96-108); Cholesterol 155 mg/dL (<200); Estimated Glomerular Filt Rate > 60; Glucose Fasting 85 mg/dL (60-99); HDL Cholesterol 47 mg/dL (>40); LDL Cholesterol Calculated 98 mg/dL (<100); Potassium 3.8 mmol/L (3.3-5.1); Sodium 141 mmol/L (135-145); Total Protein 7.1 g/dL (6.5-8.0); Triglycerides 53 mg/dL (<150)
[2024-09-29 12:09] LABS: TSH reflex Free T4 0.51 uIU/mL (0.32-4.0); Vitamin D 25-OH Total 27.5 ng/mL (>30)
[2024-09-29 12:35] LABS: Alkaline Phosphatase 70 U/L (39-117)
== END 2024-09-29 09:20 | disposition home or self-care (01) ==
LOC: HO.LAB 09:19
PROVIDERS: PCP Internal Medicine; Visit Provider Internal Medicine
DX: Z00.00 Encounter for general adult medical examination without abnormal findings (principal); E78.00 Pure hypercholesterolemia, unspecified; D64.9 Anemia, unspecified; R30.0 Dysuria; E55.9 Vitamin D deficiency, unspecified
CPT/HCPCS: 36415; 80053; 80061; 81003; 82306; 84443; 85025

== ENCOUNTER 2025-02-08 15:30 | Outpatient (AMB) | payer BC, SELFPAY ==
--- NOTE | 2025-02-08 15:40 | A.OFFPC_ITS ---
Vital Signs 02/08/25 15:41 Height 5 ft 3 in Weight 149 lb 6 oz BMI 26.5 BP 112/74 Blood Pressure Location Lt brachial Position Sitting Pulse 67 Pulse Source Pulse Oximeter Temp 97.3 F Temp Source Temporal Artery Scan Pulse Oximetry (%) 96 Oxygen Delivery Method Room Air Intake Visit Reasons: 6 mnth f/u (rescheduled) Allergies seafood Allergy (Unknown, Verified 02/08/25 16:18) Unknown Medication List - Last Reconciled 02/08/25 by Jersey Cardoso MD albuterol sulfate 90 mcg/actuation (ProAir HFA) 2 puffs inhalation Q6H PRN 30 days albuterol sulfate 0.63 mg (3 mL) inhalation QID PRN nekapwbfed-ambctxkubfxyr-nugh 50-325-40 mg 1 cap PO Q6-8H PRN 30 days naproxen 500 mg PO BID PRN sumatriptan succinate 50 mg PO Q2H PRN Tobacco use date assessed: 02/08/25 Dental Screening Dental Screen Date: 02/08/25 Did you have a dental visit in the last 12 months?: Yes Did you have a dental problem in the last 6 months where you did not have access to dental care?: No Was dental information given to patient?: Patient has dentist HPI 6 mnth f/u (rescheduled) HPI Details Patient comes in today for her follow up visit States that she has been experiencing occasional pressure-like sensation over the back of her head and over her temporal areas bilaterally States that these symptoms have been going on for about a month now, and that they can last all day at times States that she has not had any associated photophobia or nausea with her recent head symptoms and reports that her blood pressure was okay when these were occurring as she has checked her BP a couple of times during these headaches - noted that her systolic BP was around 125 mm She denies any dizziness Denies any chest pains, no increased shortness of breath No nausea/vomiting, no abdominal pain No change in bowel habits noted Needs her Vitamin D3 Rx refilled She had her follow-up labs done back in September 2024 - to discuss her results [facility] Medical History Overweight (BMI 25.0-29.9) Pseudoangiomatous stromal hyperplasia of breast Lump of axillary tail of left breast Vitamin D deficiency Migraine with aura Obesity (BMI 30-39.9) Surgical History Hx of tubal ligation History of section Family History Father No problems noted. 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 1. Little interest or pleasure in doing things: not at all 2. Feeling down, depressed, or hopeless: not at all 3. Trouble falling or staying asleep, or sleeping too much: not at all 4. Feeling tired or having little energy: several days 5. Poor appetite or overeating: not at all 6. Feeling bad about yourself - or that you are a failure or have let yourself or your family down: not at all 7. Trouble concentrating on things, such as reading the newspaper or watching television: not at all 8. Moving or speaking so slowly that other people could have noticed. Or the opposite - being so fidgety or restless that you have been moving around a lot more than usual: not at all 9. Thoughts that you would be better off or of hurting yourself in some way: not at all Total score: 1 Depression Screening Interpretation: Negative Depression Screening Done: Yes 68617 - PHQ-9 Billing: Yes Source: Developed by Drs. Viktor Ramirez, Lisa Zafar, Henok Doherty and colleagues, with an educational yolette from [employer]. Thrive Questionnaire Date Thrive assessed: 02/08/25 I am a: Patient What is your living situation today?: I have a steady place to live Within the past 12 months, did the food you bought not last and you didn't have the money to get more?: Never true Within the past 12 months, did you worry whether your food would run out before you got money to buy more?: Never true Do you have trouble paying for medicines?: No Do you have trouble getting transportation to medical appointments?: No Do you have trouble paying your heating and electricity bill?: No Do you have trouble taking care of your child, family member or friend?: No Do you have trouble with day-to-day activities such as bathing, preparing meals, shopping, managing finances, etc.?: No Are you currently unemployed and looking for a job?: No Are you interested in more education?: No Please select the resources that you would like help with: None Currently or been in a relationship where the following occur: No concerns reported THRIVE Score: 0 AUDIT C Alcohol Use Questionnaire (AUDIT-C) 1. How often do you have a drink containing alcohol?: Never 3. How often do you have six or more drinks on one occasion?: Never Total Score: 0 Score Reviewed/Action Taken: Yes LISANDRO-7 AMB Questionnaire LISANDRO-7 Date LISANDRO - 7 assessed: 02/08/25 Feeling nervous, anxious, or on edge: 0 = Not at all Not being able to stop or control worryin = Not at all Worrying too much about different things: 0 = Not at all Trouble relaxin = Not at all Being so restless that it is hard to sit still: 0 = Not at all Becoming easily annoyed or irritable: 0 = Not at all Feeling afraid as if something awful might happen: 0 = Not at all Total LISANDRO-7 score (0-4 normal; 5-9 mild; 10-14 moderate; 15-21 severe): 0 Source: Developed by Drs. Viktor Ramirez, Lisa Zafar, Henok Doherty and colleagues, with an educational yolette from [employer]. LISANDRO-7 Assessment Billing LISANDRO-7 Assessment Tool: LISANDRO-7 Assessment 95350 Review of Systems Const Reports as per HPI, Denies chills, Denies fatigue, Denies fever(s) and Reports headache(s) (on and off, incl feeling pulsations over the temporal areas bilaterally) Eyes Denies blurry vision ENT Denies dysphagia, Denies dizziness, Denies otalgia, Reports headache(s) (on and off, incl feeling pulsations over the temporal areas bilaterally), Denies neck pain, Denies odynophagia and Denies sore throat Card Denies chest pain, Denies irregular heart rhythm, Denies palpitations and Denies dyspnea Resp Denies chest congestion, Denies cough and Denies dyspnea GI Denies abdominal pain, Denies constipation, Denies dysphagia, Denies heartburn, Denies diarrhea, Denies nausea, Denies odynophagia and Denies vomiting Denies difficulty voiding, Denies nocturia, Denies dysuria and Denies urinary urgency Musc Denies back pain, Denies arthralgias and Denies neck pain Skin/Breast Denies rash Neuro Denies dizziness, Reports headache(s) (on and off, incl feeling pulsations over the temporal areas bilaterally) and Denies paresthesias Psych Denies anxiety and Denies depression Endo Denies fatigue and Denies palpitations David/Lymph Denies easy bruising Physical exam (Primary Care) Vital Signs: Last Vital Signs Temp 97.3 F 02/08/25 15:41 Pulse 67 02/08/25 15:41 BP 112/74 02/08/25 15:41 Pulse Ox 96 02/08/25 15:41 Oxygen Delivery Method Room Air 02/08/25 15:41 BMI result Body Mass Index 26.5 Tobacco/Smoking Status: Tobacco use Status Tobacco use date assessed 02/08/25 02/08/25 15:44 Patient Tobacco Use Status Never used Tobacco 02/08/25 15:44 e-Cigarette/Vaping Use Never Used 02/08/25 15:44 PHQ-9: PHQ-9 Score PHQ-9: Total score 1 02/08/25 16:23 Depression Screening Interpretation: Negative Thrive Assessment: Date of Thrive Assessment Date Thrive assessed 02/08/25 02/08/25 15:44 Currently or been in a relationship where the following occur: No concerns reported Const General: no acute distress and alert HENMT Ears: TM's normal bilaterally and EAC's normal Throat: Yes posterior oropharynx normal and Yes tonsils normal (no TP congestion) Neck Neck: Yes no lymphadenopathy and Yes supple Thyroid: Thyroid normal Resp Auscultation: clear to auscultation bilaterally, no rales and no wheezes Cardio Rate: regular rate Rhythm: regular rhythm Heart sounds: no murmurs GI Palpation (GI): Soft to palpation and nontender Auscultation: normal bowel sounds General: Yes no CVA tenderness Back/Spine/Pelvis Back: no CVA tenderness Thoracic/Lumbar Spine: No lumbar spinal tenderness Skin Rashes: no rashes Extrem General: Yes no clubbing, cyanosis or edema Results Reviewed Results Reviewed: Laboratory Tests 09/29/24 09/29/24 09:29 09:30 WBC 6.2 Hgb 12.1 Hct 36.1 L Plt Count 226 Sodium 141 Potassium 3.8 Creatinine 0.69 Estimated GFR > 60 Fasting Glucose 85 Calcium 9.2 AST 18 ALT 12 Triglycerides 53 Cholesterol 155 LDL Cholesterol, Calc 98 HDL Cholesterol 47 25-OH Vitamin D Total 27.5 L TSH 0.51 Ur Specific [place] >= 1.030 H Urine Protein Negative Urine Glucose (UA) Negative Urine Blood Negative Urine Nitrite Negative Ur Leukocyte Esterase Negative Coding Level of Care Code Est Pt Level 4 (94602) Diagnoses Migraine with aura and without status migrainosus, not intractable G43.109 Status migrainosus presence: without status migrainosus Intractability: not intractable Vitamin D deficiency E55.9 Pseudoangiomatous stromal hyperplasia of breast N64.89 Overweight (BMI 25.0-29.9) E66.3 Breast cancer screening by mammogram Z12.31 Additional Codes LISANDRO-7 Assessment Billing - LISANDRO-7 Assessment Tool: LISANDRO-7 Assessment 17598 ([id number]) PHQ-9 - 77893 - PHQ-9 Billing: Yes ([id number]) Assessment & Plan Assessment & Plan (1) Migraine with aura: Code(s): G43.109 - Migraine with aura, not intractable, without status migrainosus Category: Medical Qualifiers: Status migrainosus presence: without status migrainosus Intractability: not intractable Qualified Code(s): G43.109 - Migraine with aura, not intractable, without status migrainosus Plan: Patient states again that she usually only gets about 1 to 2 episodes of headaches a month and that these have been mostly well-controlled Have advised her that her recent sensations of pulsations over her temporal areas bilaterally and headaches symptoms noted in her HPI today may actually be a migraine headache equivalent and do not appear to be due to temporal arteritis or other more severe conditions, as previously discussed Continue Fioricet 50-325-40 mg PRN and/or Sumatriptan 50 mg PRN for now She is reminded again to call if her migraine headaches progress or get worse or occur much more frequently than before, as we may then need to have her see neurology again for further evaluation and management or consider starting her on prophylactic Tx for her headaches (2) Vitamin D deficiency: Code(s): E55.9 - Vitamin D deficiency, unspecified Category: Medical Plan: Continue Vitamin D3 2000 units QD - Rx refilled (3) Pseudoangiomatous stromal hyperplasia of breast: Code(s): N64.89 - Other specified disorders of breast Category: Medical Plan: She had diagnostic mammogram done last April 2023 to evaluate a left breast mass US-guided Bx was done and the lesion came out benign on pathology She was recommended follow up and repeat sonogram in 6 months but unclear at this time if this was done yet Follow up with her breast cancer team as scheduled for continuing surveillance (4) Overweight (BMI 25.0-29.9): Code(s): E66.3 - Overweight Category: Medical Plan: Reinforced diet/exercise as tolerated/lose weight (5) Breast cancer screening by mammogram: Code(s): Z12.31 - Encounter for screening mammogram for malignant neoplasm of breast Category: Medical Plan: She is now due to start her annual mammograms and will send her for this JAZMIN Plan To return in 6 months for her next annual physical examination Orders: Orders Lipid Panel 6 Months E78.00 - Pure hypercholesterolemia, unspecified, Z00.00 - Encounter for general adult medical examination without abnormal findings TSH reflex Free T4 6 Months E78.00 - Pure hypercholesterolemia, unspecified, Z00.00 - Encounter for general adult medical examination without abnormal findings UA CC w/rflx Micro + Cult 6 Months R30.0 - Dysuria, Z00.00 - Encounter for general adult medical examination without abnormal findings Vitamin D 25-OH Total 6 Months E55.9 - Vitamin D deficiency, unspecified, Z00.00 - Encounter for general adult medical examination without abnormal findings MM tomosynthesis screening BI 02/08/25 Z12.31 - Encounter for screening mammogr am for malignant neoplasm of breast Complete Blood Count Auto Diff 6 Months D64.9 - Anemia, unspecified, Z00.00 - Encounter for general adult medical examination without abnormal findings Comprehensive [place]vell. Panel Fast 6 Months E78.00 - Pure hypercholesterolemia, unspecified, Z00.00 - Encounter for general adult medical examination without abnormal findings Medications: New cholecalciferol (vitamin D3) 50 mcg PO DAILY 90 caps 3RF 90 days E55.9 - Vitamin D deficiency, unspecified
[2025-02-08 15:41] VITALS: BP 112/74; PULSE 67; TEMP 36.3; O2SAT 96; BMI 26.5
== END 2025-02-08 16:29 | disposition home or self-care (01) ==
LOC: HO.HMCH 15:31
PROVIDERS: PCP Internal Medicine; Visit Provider Internal Medicine
DX: G43.109 Migraine with aura, not intractable, without status migrainosus (principal); E55.9 Vitamin D deficiency, unspecified; N64.89 Other specified disorders of breast; E66.3 Overweight; Z12.31 Encounter for screening mammogram for malignant neoplasm of breast

== ENCOUNTER → 2025-02-08 15:30 | Outpatient (BNVA) | payer BC, SELFPAY | PROVIDERS: PCP Internal Medicine; Visit Provider Internal Medicine | DX: R30.0 Dysuria (principal); G43.109 Migraine with aura, not intractable, without status migrainosus; E55.9 Vitamin D deficiency, unspecified; N64.89 Other specified disorders of breast; E66.3 Overweight; E78.00 Pure hypercholesterolemia, unspecified; D64.9 Anemia, unspecified; Z68.26 Body mass index [BMI] 26.0-26.9, adult | CPT/HCPCS: 96127 ==

== ENCOUNTER 2025-03-25 15:43 | Outpatient (REF) | payer BC, SELFPAY | END 2025-03-25 15:44 | disposition home or self-care (01) | LOC: HO.MAMMO 15:43 | PROVIDERS: PCP Internal Medicine; Visit Provider Internal Medicine | DX: Z12.31 Encounter for screening mammogram for malignant neoplasm of breast (principal) | CPT/HCPCS: 77063; 77067 ==

== ENCOUNTER → 2025-03-25 16:00 | Outpatient (BNV) | payer BC, SELFPAY | PROVIDERS: PCP Internal Medicine; Visit Provider Internal Medicine | DX: Z12.31 Encounter for screening mammogram for malignant neoplasm of breast (principal) | CPT/HCPCS: 77063; 77067 ==

== ENCOUNTER 2025-04-06 09:56 | Outpatient (REF) | payer BC, SELFPAY ==
--- NOTE | ~2025-04-06 | US_ITS ---
EXAMINATION(S): 1. MM DIAGNOSTIC DIGITAL BREAST TOMOSYNTHESIS, LEFT 2. TARGETED ULTRASOUND OF THE LEFT BREAST CLINICAL INFORMATION: Callback from screening for asymmetry in the left axilla on the MLO view. COMPARISON: Comparison made to multiple prior, most recent March 25, 2025, and most remote September 13, 2022. TECHNIQUE: Spot compression tomosynthesis images of the left axilla were obtained. FINDINGS: BREAST COMPOSITION: There are scattered areas of fibroglandular density. LEFT BREAST: Multiple attempts were performed to include the area of asymmetry with spot compression paddles. The asymmetry was at least partially pliable. The overall appearance is similar to multiple prior studies as far back as August 2022, therefore, most likely representing accessory breast tissue. Targeted ultrasound of left axilla was performed at the location of the asymmetry. No suspicious sonographic findings seen. US/US Breast LT Limited Mamm Only IMPRESSION: LEFT BREAST: Stable accessory breast tissue in the axilla. Benign, no mammographic evidence of malignancy. Normal interval follow-up is recommended in 12 months. ASSESSMENT: BI-RADS: Category 2: Benign RECOMMENDATION: 1 year F/U Results were provided to the patient at time of visit by the technologist. This patient's information was entered into a reminder system with a target due date for their next mammogram. Electronically signed by: Declan Dia MD 04/06/2025 10:55 AM [facility]
== END 2025-04-06 09:57 | disposition home or self-care (01) ==
LOC: HO.MAMMO 09:56
PROVIDERS: PCP Internal Medicine; Visit Provider Internal Medicine
DX: N64.89 Other specified disorders of breast (principal)
CPT/HCPCS: 76642; 77061; 77065

== ENCOUNTER → 2025-04-06 10:00 | Outpatient (BNV) | payer BC, SELFPAY | PROVIDERS: PCP Internal Medicine; Visit Provider Radiology Body Imaging | DX: R92.8 Other abnormal and inconclusive findings on diagnostic imaging of breast (principal) | CPT/HCPCS: 76642; 77061; 77065 ==